=== PATIENT | male | born 1940 | race Caucasian/White ===

== ENCOUNTER 2019-04-15 17:30 | Inpatient (IN) | payer MEDICARE, OTHER ==
[2019-04-15] VITALS (8 sets, daily range): BP systolic 98–117; BP diastolic 68–82
[~2019-04-15] VITALS: Ht 188 cm; Wt 98.9 kg
[2019-04-15] MEDS ORDERED: HEPARIN for IV BOLUS 10,000 UNIT/10 ML VIAL. IV PRN ×2 (20:00)
[2019-04-15] MEDS ORDERED: HEPARIN 25,000UTS/500ML PREMIX 500 ML IV PRN (20:00)
--- NOTE | 2019-04-15 21:45 | RAD ---
VENOUS LOWER EXT BILATERAL History: Massive pulmonary emboli. Comparison: CT angiogram of April 25 Discussion: Multiple longitudinal and transverse high resolution real-time images of the venous system of bilateral lower extremity were obtained with color and Doppler sampling. Partial thrombus within the right superficial femoral and popliteal veins. Occlusive thrombus within the posterior tibial vein. Patent right common femoral and saphenous veins. Occlusive thrombus within the left mid to distal superficial femoral vein, popliteal vein and posterior tibial vein. Patent left common femoral vein and greater saphenous vein. Impression: 1. Partial and occlusive deep vein thrombosis involving the bilateral superficial femoral, popliteal and posterior tibial veins. Electronically signed by: Jorge Pina DO (04/15/2019 9:42 PM) [facility] [place]
[2019-04-15] MEDS: IV NORMAL SALINE 1000ML BAG 1,000 ML IV SCH (22:02)
[2019-04-15] MEDS: methylPREDNISolone SOD SUCC PF 40 MG/ML VIAL. IV SCH (22:02)
[2019-04-15] MEDS ORDERED: ALTEPLASE IV ONE (22:15)
[2019-04-15] MEDS ORDERED: NORMAL SALINE IV ONE (22:15)
--- NOTE | 2019-04-15 23:00 | NUR ---
Admitted to ICU room 106 from [facility] via EMS. Arrived with heparin drip and 5l O2 via simple mask. Transferred to ICU for further treatment due to massive PE. Patient is alert and oriented and able to answer questions appropriately. Denies complaint of pain but reports SOA with activity. Transcribed orders from Dr. Escobar. Dr. Clark notified of admit with orders received to follow PE heparin protocol and TPA per pharmacy recommendations. Pharmacy notified with recommendations. VSS. Will continue to monitor.
--- NOTE | 2019-04-15 23:30 | NUR ---
Patient states that he has no family or next of kin to notify but has a neighbor that can be called but does not have her phone number. 2 estranged daughters. Permission to contact neighbor/friend Cary Victor, but no phone number available. [place] lives [place] [address] [place] [id number] [place] [address]. Patient verbalizes a DNR/DNI.
[2019-04-16] VITALS (24 sets, daily range): BP systolic 111–163; BP diastolic 61–94
[2019-04-16] MEDS ORDERED: ALTEPLASE 100 MG IV ONE
[2019-04-16 04:56] LABS: HEMATOCRIT 42.7 % (39.0-53.0); HEMOGLOBIN 13.9 g/dL (13.0-17.5); RED BLOOD COUNT 4.94 x10^6/uL (4.30-5.70); RED CELL DISTRIBUTION WIDTH 15.4 % (11.5-14.5); WHITE BLOOD COUNT 11.7 x10^3/uL (4.0-11.0)
[2019-04-16 05:24] LABS: ALBUMIN 2.3 g/dL (3.4-5.0); ALBUMIN/GLOBULIN RATIO 0.8 (1.0-1.7); CALCIUM 8.1 mg/dL (8.5-10.1); CREATININE 0.9 mg/dL (0.7-1.3); GFR 81.6; POTASSIUM 4.5 mmol/L (3.5-5.1); TOTAL PROTEIN 5.2 g/dL (6.4-8.2)
[2019-04-16] MEDS: methylPREDNISolone SOD SUCC PF 40 MG/ML VIAL. IV SCH ×3 (06:00→21:43)
[2019-04-16] MEDS ORDERED: PANTOPRAZOLE SODIUM IV DRIP 80 MG in IV NORMAL SALINE 100ML 100 ML IV SCH (07:30)
[2019-04-16 08:16] LABS: HEMATOCRIT 39.8 % (39.0-53.0); HEMOGLOBIN 13.3 g/dL (13.0-17.5); RED BLOOD COUNT 4.64 x10^6/uL (4.30-5.70); RED CELL DISTRIBUTION WIDTH 15.5 % (11.5-14.5)
[2019-04-16 08:19] LABS: CALCIUM 7.9 mg/dL (8.5-10.1); CREATININE 0.9 mg/dL (0.7-1.3); GFR 81.6; POTASSIUM 4.2 mmol/L (3.5-5.1)
[2019-04-16 08:25] LABS: PARTIAL THROMBOPLASTIN TIME 144 SEC (24-38)
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
[2019-04-16] MEDS ORDERED: LIDOCAINE WITH 8.4% SOD BICARB 3 ML DISP.SYRIN. ONE (08:38)
[2019-04-16] MEDS ORDERED: IOHEXOL 240 MG/ML 50ML VIAL. ONE (08:39)
--- NOTE | 2019-04-16 08:40 | PN ---
DATE: 04/16/2019 SUBJECTIVE: The patient was transferred yesterday from [facility] after he was diagnosed with massive pulmonary embolism with saddle embolus with acute on chronic hypoxic respiratory failure, severe hypoxemia, hypotension, treated with at least 2 liters of fluid, was started on heparin and was transferred to [facility] where he received TPA and continued on heparin. Unfortunately, he started bleeding from all the IV sites and also has fresh blood per rectum. However, when I saw him this morning, he was resting slightly propped up in bed in no apparent respiratory distress. On questioning him, he denied any chest pain or shortness of breath. PHYSICAL EXAMINATION: GENERAL: When I examined him, he looked well and was clearly in no apparent respiratory distress. No pallor, jaundice, cyanosis, or thyromegaly. No jugular venous distension, has mild bilateral lower limb edema. VITAL SIGNS: His heart rate was 89, blood pressure was 151/89, temperature was 97.4, respiratory rate was 12 and oxygen saturation was 98% on 6 liters of oxygen. HEAD, EYES, EARS, NOSE AND THROAT: Normocephalic, atraumatic. NECK: Supple. HEART: Showed normal first and second heart sounds. No gallop or murmur. CHEST: Showed central trachea, equally reduced expansion and air entry, vesicular sounds. No crepitation or rhonchi. ABDOMEN: Distended, soft, nontender. No guarding or rigidity. No organomegaly. All hernial orifices intact. Bowel sounds normal. NEUROLOGIC: He is awake, alert, responding appropriately. All cranial nerves are intact. He moves extremities without difficulty. His intake and output overnight was incompletely recorded. LABORATORY DATA: Her lab work this morning showed a white cell count of 11,700, hemoglobin 13.9, hematocrit 43, MCV 87 and platelet count of 142,000. Serum sodium 140, potassium 4.5, chloride 103, bicarbonate 25, anion gap of 12, BUN 26, creatinine 0.9, estimated GFR was 81 mL per minute. His glucose was 149, calcium was 8.1. Total bilirubin, AST, ALT, alkaline phosphatase were normal. Total protein was 5.2, albumin 2.3. He has bilateral lower extremity venous Doppler ultrasound, which showed partial and occlusive deep vein thrombosis involving bilateral superficial femoral, popliteal and posterior tibial veins. ASSESSMENT: In summary, this is a 78-year-old male patient who was admitted initially to the Emergency Room to [facility] with shortness of breath that apparently has been going on for almost a month according to him with also swelling of both lower extremities. He probably has been throwing some of his clothes and yesterday he got out to the bed and went to the bathroom, came back and became extremely hypoxic, tachycardic, hypotensive. His blood pressure was only 80 systolic, treated with IV fluid. He received at that time 2 liters of fluid, was transferred to the ICU. CT angio of the chest showed that he has massive pulmonary embolism with saddle embolus confirmed by an echocardiogram and was transferred to [facility] ICU where he was treated with TPA and heparin. The patient seems to be stable hemodynamically. His oxygen requirement is much less. Yesterday, he was 100% nonrebreather mask. His acute kidney injury has improved. His creatinine is down actually from 1.6 to 0.9. Unfortunately, he developed fresh blood per rectum and bleeding from all the IV sites most likely due to consumption coagulopathy. We have already consulted Dr. Clark. His heparin was stopped. I have consulted Dr. Terrell for placement of an IVC filter. We have also repeated with an order for DIC panel and type and cross as he might require blood transfusion. We will monitor his H and H closely and transfuse him as needed. ELBERT DELUCA MD DR: MARKY/kathleen JOB#: [id number] / [id number]
[2019-04-16 08:59] LABS: FIBRINOGEN 94 mg/dL (200-440)
[2019-04-16 09:00] LABS: D-DIMER > 20.00 ug/mlFEU (0.00-0.50)
[2019-04-16 09:01] LABS: PLATELET COUNT 141 x10^3/uL (140-400)
[2019-04-16] MEDS ORDERED: HEPARIN for IV BOLUS 10,000 UNIT/10 ML VIAL. IV PRN ×2 (09:30)
[2019-04-16] MEDS: HEPARIN 25,000UTS/500ML PREMIX 500 ML IV PRN ×2 (09:57→21:45)
[2019-04-16] MEDS ORDERED: HEPARIN for NUC MED 500 UNIT/5 ML DISP.SYRIN. IV ONE (10:45)
[2019-04-16] MEDS: IV NORMAL SALINE 1000ML BAG 1,000 ML IV SCH (12:53)
--- NOTE | 2019-04-16 12:54 | PDOC ---
PULMONARY PROGRESS NOTES Vitals Vital Signs Date Time Temp Pulse Resp B/P (MAP) Pulse Ox O2 Delivery O2 Flow Rate FiO2 04/16/19 11:00 95 16 124/69 (87) 97 Nasal Cannula 5.0 04/16/19 08:00 97.5 97.5 Labs Laboratory Tests Test 04/16/19 01:55 04/16/19 07:45 White Blood Count 11.7 x10^3/uL (4.0-11.0) 12.0 x10^3/uL (4.0-11.0) Red Blood Count 4.94 x10^6/uL (4.30-5.70) 4.64 x10^6/uL (4.30-5.70) Hemoglobin 13.9 g/dL (13.0-17.5) 13.3 g/dL (13.0-17.5) Hematocrit 42.7 % (39.0-53.0) 39.8 % (39.0-53.0) Mean Corpuscular Volume 87 fL (79-100) 86 fL (79-100) Mean Corpuscular Hemoglobin 28 pg (25-35) 29 pg (25-35) Mean Corpuscular Hemoglobin Concent 33 g/dL (31-37) 33 g/dL (31-37) Red Cell Distribution Width 15.4 % (11.5-14.5) 15.5 % (11.5-14.5) Platelet Count 142 x10^3/uL (140-400) 141 x10^3/uL (140-400) Heparin Anti-Xa Act, Unfractionated < 0.10 IU/mL (0.30-0.70) 0.43 IU/mL (0.30-0.70) Sodium Level 140 mmol/L (136-145) 139 mmol/L (136-145) Potassium Level 4.5 mmol/L (3.5-5.1) 4.2 mmol/L (3.5-5.1) Chloride Level 103 mmol/L (98-107) 105 mmol/L (98-107) Carbon Dioxide Level 25 mmol/L (21-32) 26 mmol/L (21-32) Anion Gap 12 (6-14) 8 (6-14) Blood Urea Nitrogen 26 mg/dL (8-26) 27 mg/dL (8-26) Creatinine 0.9 mg/dL (0.7-1.3) 0.9 mg/dL (0.7-1.3) Estimated GFR (Cockcroft-Gault) 81.6 81.6 BUN/Creatinine Ratio 29 (6-20) Glucose Level 149 mg/dL (70-99) 149 mg/dL (70-99) Calcium Level 8.1 mg/dL (8.5-10.1) 7.9 mg/dL (8.5-10.1) Total Bilirubin 1.0 mg/dL (0.2-1.0) Aspartate Amino Transf (AST/SGOT) 40 U/L (15-37) Alanine Aminotransferase (ALT/SGPT) 47 U/L (16-63) Alkaline Phosphatase 91 U/L (46-116) Total Protein 5.2 g/dL (6.4-8.2) Albumin 2.3 g/dL (3.4-5.0) Albumin/Globulin Ratio 0.8 (1.0-1.7) Prothrombin Time 20.0 SEC (11.7-14.0) Prothromb Time International Ratio 1.7 (0.8-1.1) Activated Partial Thromboplast Time 144 SEC (24-38) Fibrinogen 94 mg/dL (200-440) D-Dimer (Zully) > 20.00 ug/mlFEU Laboratory Tests Test 04/16/19 01:55 04/16/19 07:45 White Blood Count 11.7 x10^3/uL (4.0-11.0) 12.0 x10^3/uL (4.0-11.0) Red Blood Count 4.94 x10^6/uL (4.30-5.70) 4.64 x10^6/uL (4.30-5.70) Hemoglobin 13.9 g/dL (13.0-17.5) 13.3 g/dL (13.0-17.5) Hematocrit 42.7 % (39.0-53.0) 39.8 % (39.0-53.0) Mean Corpuscular Volume 87 fL (79-100) 86 fL (79-100) Mean Corpuscular Hemoglobin 28 pg (25-35) 29 pg (25-35) Mean Corpuscular Hemoglobin Concent 33 g/dL (31-37) 33 g/dL (31-37) Red Cell Distribution Width 15.4 % (11.5-14.5) 15.5 % (11.5-14.5) Platelet Count 142 x10^3/uL (140-400) 141 x10^3/uL (140-400) Heparin Anti-Xa Act, Unfractionated < 0.10 IU/mL (0.30-0.70) 0.43 IU/mL (0.30-0.70) Sodium Level 140 mmol/L (136-145) 139 mmol/L (136-145) Potassium Level 4.5 mmol/L (3.5-5.1) 4.2 mmol/L (3.5-5.1) Chloride Level 103 mmol/L (98-107) 105 mmol/L (98-107) Carbon Dioxide Level 25 mmol/L (21-32) 26 mmol/L (21-32) Anion Gap 12 (6-14) 8 (6-14) Blood Urea Nitrogen 26 mg/dL (8-26) 27 mg/dL (8-26) Creatinine 0.9 mg/dL (0.7-1.3) 0.9 mg/dL (0.7-1.3) Estimated GFR (Cockcroft-Gault) 81.6 81.6 BUN/Creatinine Ratio 29 (6-20) Glucose Level 149 mg/dL (70-99) 149 mg/dL (70-99) Calcium Level 8.1 mg/dL (8.5-10.1) 7.9 mg/dL (8.5-10.1) Total Bilirubin 1.0 mg/dL (0.2-1.0) Aspartate Amino Transf (AST/SGOT) 40 U/L (15-37) Alanine Aminotransferase (ALT/SGPT) 47 U/L (16-63) Alkaline Phosphatase 91 U/L (46-116) Total Protein 5.2 g/dL (6.4-8.2) Albumin 2.3 g/dL (3.4-5.0) Albumin/Globulin Ratio 0.8 (1.0-1.7) Prothrombin Time 20.0 SEC (11.7-14.0) Prothromb Time International Ratio 1.7 (0.8-1.1) Activated Partial Thromboplast Time 144 SEC (24-38) Fibrinogen 94 mg/dL (200-440) D-Dimer (Zully) > 20.00 ug/mlFEU Impression . FULL NOTE DICTATED ACUTE PE/ RESP FAILURE S/P TPA NOW BETTER WITH SOME LOWER GI BLEED WILL MONITOR D/W PETER Young AND NANCY NUÑEZ MD Apr 16, 2019 12:54
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
--- NOTE | 2019-04-16 13:31 | CONS ---
DATE OF CONSULTATION: 04/16/2019 ATTENDING PHYSICIAN: Dr. Escobar. CONSULTING PHYSICIAN: Dr. Clark. REASON FOR CONSULTATION: The patient is seen in pulmonary consultation at the request of Dr. Escobar for acute respiratory distress, acute pulmonary embolism. HISTORY OF PRESENT ILLNESS: The patient is a 78-year-old male that presented to [facility] Emergency Room complaining of increasing shortness of breath for the past month or so. At that time, he did not complain of any chest pain. No pressure. The patient was admitted and treated for COPD exacerbation as well as congestive heart failure. Yesterday while hospitalized at [facility], the patient got up out of bed and went to the bathroom, became acutely short of breath, tachypneic and tachycardic. His O2 saturation dropped to 70%. EKG showed that he was in SVT versus AFib. He was hypotensive. He was started on IV fluids. He was evaluated with CT angiogram. I reviewed the CT angiogram revealing evidence of massive pulmonary emboli. The patient also had any echocardiogram revealing ejection fraction 55 to 60% with right ventricular strain. His right ventricular systolic function was decreased. Dr. Hutton called me yesterday regarding the patient's clinical presentation. We had a detailed discussion. At that time, the patient was hemodynamically unstable. There were no contraindications to administering IV tPA. The patient was transferred to [facility] for further evaluation and management. Upon arrival to the [facility], the patient was started IV tPA. This morning, he had some difficulty with some bright red blood per rectum, the heparin drip was discontinued. He has been seen by GI service. A bleeding scan has been ordered, report is currently pending. He has also had bilateral DVTs. Earlier today, a decision was made to proceed with IVC filter placement. Upon evaluation by Dr. Whitney, the patient's lower GI bleed, had stopped. We discussed the case with me. We then concluded that at that time, the placement of the IVC filter was held. The patient underwent a GI bleeding scan. He was restarted on heparin. He is currently in the intensive care unit, awake, alert, following commands. His vital signs have greatly improved. He is on nasal cannula oxygen. He reports no significant difficulty breathing. There is no prior history of thrombophilia. No history of cancer. The patient is active, walks on a daily basis. PAST MEDICAL HISTORY: Otherwise remarkable for COPD, previous history of pneumothorax, tobacco dependence and in remission, quit approximately 2 years ago. PAST SURGICAL HISTORY: Previous chest tube placement. He has had previous traumatic pneumothorax. ALLERGIES: No known drug allergies. CURRENT MEDICATION LIST: At home was reviewed. FAMILY HISTORY: Sister with coronary artery disease. No history of DVT or pulmonary embolism. SOCIAL HISTORY: He is , quit tobacco 2 years ago. CONSTITUTIONAL: CONSTITUTIONAL: No fever or chills. EYES: No change in visual acuity. HEENT: No nasal congestion or sore throat. PULMONARY: As indicated above. CARDIOVASCULAR: As indicated above. GASTROINTESTINAL: No nausea, vomiting, diarrhea. GENITOURINARY: No dysuria or frequency. MUSCULOSKELETAL: No localized muscle aches or joint pains. SKIN: No new skin rashes. NEUROLOGIC: No headaches, diplopia or blurred vision. No prior history of cerebrovascular accident. No recent bleeding. PHYSICAL EXAMINATION: VITAL SIGNS: The patient was in the intensive care unit, currently on 4 liters of oxygen supplementation. Blood pressure is adequate. Heart rate is decreased. Respiratory rate of 16. HEENT: Eyes, sclerae were nonicteric. NECK: Jugular venous distention was not elevated. No lymphadenopathy. CHEST: Full expansion. LUNGS: Adequate airway flow with no wheezes. CARDIOVASCULAR: Regular rate and rhythm with S1, S2, no S3. ABDOMEN: Soft, nontender, nondistended. EXTREMITIES: No clubbing, cyanosis or edema. NEUROLOGICAL: The patient was awake, alert, following commands. A detailed neuro exam was not performed. LABORATORY DATA: CT chest was reviewed. Once again there is massive pulmonary emboli, right ventricular strain and moderate centrilobular emphysema. Venous Dopplers of the lower extremities were positive bilateral superficial femoral, popliteal and posterior tibial veins. A 2D echo once again revealed EF of 55-60%, flattened septum consistent with right ventricular volume and pressure overload along with right ventricular dilatation and the RV systolic function was mildly reduced. IMPRESSION: 1. Acute hypoxemic respiratory failure secondary to acute pulmonary embolism. 2. Acute pulmonary emboli. 3. Bilateral lower extremity venous thrombi. 4. 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 5. Tobacco dependent, in remission. 6. Lower GI bleed. 7. Severe protein malnutrition present upon admission. PLAN: As indicated above, the case was discussed extensively with Dr. Hutton. A decision was made to administer TPA, the patient did not have any relative or absolute contraindications to systemic tPA. This morning, he is having some difficulty with lower GI bleed. He is currently being evaluated. Overall, his respiratory status and hemodynamic status has improved. We will continue to monitor for now, continue heparin for now. If the patient starts to rebleeding have some difficulty. We will proceed with IVC filter placement. Of note, his hemoglobin went from 13.9 to 13.3 this morning. We will monitor H and H for now. I do appreciate the privilege in sharing in the patient's care. NANCY CLARK MD DR: DANIAL/kathleen JOB#: [id number] / [id number]
--- NOTE | 2019-04-16 13:58 | RAD ---
NUCLEAR MEDICINE GI BLEEDING STUDY Clinical indications: Bloody stools. TECHNIQUE: After labeling of autologous red blood cells with 29 mCi of technetium 99m UltraTag, anterior planar images of the abdomen and pelvis were performed in sequential fashion up to 60 minutes. COMPARISON: No previous GI bleeding study. FINDINGS: There is a focus of radiotracer accumulation within the lateral aspect of the right mid abdomen. IMPRESSION: Bleeding site within the lateral aspect of the right mid abdomen. Electronically signed by: J Luis Vasques MD (04/16/2019 1:55 PM) [id number]
--- NOTE | 2019-04-16 14:51 | PDOC ---
TIM MCGRATH SPECIAL SKILLS OFFICER 04/16/19 1451: CARDIO Progress Notes Date and Time Date of Service 04/16/19 Time of Evaluation 1111 Subjective Subjective: Other (breathing improve. having bloody stools) Vitals Vitals Vital Signs Date Time Temp Pulse Resp B/P (MAP) Pulse Ox O2 Delivery O2 Flow Rate FiO2 04/16/19 14:00 89 16 129/72 (91) 96 Nasal Cannula 3.0 04/16/19 08:00 97.5 97.5 Weight Weight [ ] Input and Output Intake and Output Intake and Output 04/16/19 07:00 Intake Total 100 ml Output Total 585 ml Balance -485 ml Intake IV Total 100 ml Output Urine Total 585 ml # Bowel Movements 1 Laboratory Labs Laboratory Tests Test 04/16/19 01:55 04/16/19 07:45 White Blood Count 11.7 x10^3/uL (4.0-11.0) 12.0 x10^3/uL (4.0-11.0) Red Blood Count 4.94 x10^6/uL (4.30-5.70) 4.64 x10^6/uL (4.30-5.70) Hemoglobin 13.9 g/dL (13.0-17.5) 13.3 g/dL (13.0-17.5) Hematocrit 42.7 % (39.0-53.0) 39.8 % (39.0-53.0) Mean Corpuscular Volume 87 fL (79-100) 86 fL (79-100) Mean Corpuscular Hemoglobin 28 pg (25-35) 29 pg (25-35) Mean Corpuscular Hemoglobin Concent 33 g/dL (31-37) 33 g/dL (31-37) Red Cell Distribution Width 15.4 % (11.5-14.5) 15.5 % (11.5-14.5) Platelet Count 142 x10^3/uL (140-400) 141 x10^3/uL (140-400) Heparin Anti-Xa Act, Unfractionated < 0.10 IU/mL (0.30-0.70) 0.43 IU/mL (0.30-0.70) Sodium Level 140 mmol/L (136-145) 139 mmol/L (136-145) Potassium Level 4.5 mmol/L (3.5-5.1) 4.2 mmol/L (3.5-5.1) Chloride Level 103 mmol/L (98-107) 105 mmol/L (98-107) Carbon Dioxide Level 25 mmol/L (21-32) 26 mmol/L (21-32) Anion Gap 12 (6-14) 8 (6-14) Blood Urea Nitrogen 26 mg/dL (8-26) 27 mg/dL (8-26) Creatinine 0.9 mg/dL (0.7-1.3) 0.9 mg/dL (0.7-1.3) Estimated GFR (Cockcroft-Gault) 81.6 81.6 BUN/Creatinine Ratio 29 (6-20) Glucose Level 149 mg/dL (70-99) 149 mg/dL (70-99) Calcium Level 8.1 mg/dL (8.5-10.1) 7.9 mg/dL (8.5-10.1) Total Bilirubin 1.0 mg/dL (0.2-1.0) Aspartate Amino Transf (AST/SGOT) 40 U/L (15-37) Alanine Aminotransferase (ALT/SGPT) 47 U/L (16-63) Alkaline Phosphatase 91 U/L (46-116) Total Protein 5.2 g/dL (6.4-8.2) Albumin 2.3 g/dL (3.4-5.0) Albumin/Globulin Ratio 0.8 (1.0-1.7) Prothrombin Time 20.0 SEC (11.7-14.0) Prothromb Time International Ratio 1.7 (0.8-1.1) Activated Partial Thromboplast Time 144 SEC (24-38) Fibrinogen 94 mg/dL (200-440) D-Dimer (Zully) > 20.00 ug/mlFEU Physical Exam HEENT: Neck Supple W Full Motion Chest: Symmetric LUNGS: Clear to Auscultation, Other (diminished bases) Heart: S1S2, RRR Abdomen: Soft N/T Extremities: Other (trace bilateral LE edema ) Neurology: alert, oriented, follow commands Assessment Assessment 1. Acute respiratory failure in the setting of acute PE 2. Significant acute PE; sp tPA. Echo with moderate to sever RV dilation and moderately reduced RV systolic function and severe pulmonary HTN 3. Bilateral LE DVT 4. GI bleed s/p tPA; hgb stable 5. Mild acute on chronic diastolic HF; LVEF 55-60 % 6. CAD; coronary artery calcification as noted on CTA 7. Hypertension; controlled 8. Hyperlipidemia Recommendations on heparin. Monitor H and H IVC filter being considered given GI bleed Supportive care SHEYLA SOTO MD 04/16/19 2218: CARDIO Progress Notes Plan Plan Pt. seen and examined. Agree with above DIRECTOR OF PRODUCT MANAGEMENT note. Doing much better since transfer from [place], O2 sats improved with less O2 requirements. Await possible IVC filter. Supportive care from CV standpoint. Consider repeat echo in 3 months TIM MCGRATH APRN Apr 16, 2019 14:51 SHEYLA SOTO MD Apr 16, 2019 22:18
--- NOTE | 2019-04-16 15:36 | NUR ---
SS following for discharge planning. SS reviewed pt chart. Pt is from home and is currently requiring oxygen. SS will continue to follow for discharge planning.
[2019-04-16 15:49] LABS: HEMATOCRIT 37.9 % (39.0-53.0); HEMOGLOBIN 12.4 g/dL (13.0-17.5)
[2019-04-16 22:53] LABS: HEMATOCRIT 34.1 % (39.0-53.0); HEMOGLOBIN 11.4 g/dL (13.0-17.5)
[2019-04-17] VITALS (24 sets, daily range): BP systolic 103–140; BP diastolic 60–79
[2019-04-17 05:13] LABS: HEMATOCRIT 33.3 % (39.0-53.0); HEMOGLOBIN 11.1 g/dL (13.0-17.5); RED BLOOD COUNT 3.85 x10^6/uL (4.30-5.70); RED CELL DISTRIBUTION WIDTH 15.3 % (11.5-14.5); WHITE BLOOD COUNT 9.9 x10^3/uL (4.0-11.0)
[2019-04-17 05:29] LABS: PROTHROMBIN TIME PATIENT 16.9 SEC (11.7-14.0)
[2019-04-17 05:30] LABS: UNFRACTIONATED HEPARIN TESTING 0.72 IU/mL (0.30-0.70)
[2019-04-17 05:36] LABS: ALBUMIN/GLOBULIN RATIO 0.7 (1.0-1.7); CREATININE 0.7 mg/dL (0.7-1.3); GFR 109.1; POTASSIUM 4.6 mmol/L (3.5-5.1); TOTAL BILIRUBIN 0.5 mg/dL (0.2-1.0); TOTAL PROTEIN 4.9 g/dL (6.4-8.2)
[2019-04-17] MEDS: methylPREDNISolone SOD SUCC PF 40 MG/ML VIAL. IV SCH ×3 (06:06→21:42)
--- NOTE | 2019-04-17 08:16 | PN ---
DATE: 04/17/2019 SUBJECTIVE: The patient is resting, slightly flat, sleeping comfortably, in no apparent distress. On questioning him, he denied any complaint, in particular denied any chest pain or shortness of breath. Denied any cough, phlegm or hemoptysis. He is now on 2 liters of oxygen, maintaining his oxygen saturations at 97%. PHYSICAL EXAMINATION: GENERAL: On examining him, he looked well and was clearly in no apparent respiratory distress. No pallor, jaundice, cyanosis or thyromegaly. No jugular venous distention. No limb edema. VITAL SIGNS: Her heart rate was 86, blood pressure was 128/75, temperature was 97.4, respiratory rate was 11, and oxygen saturation was 94% on 2 liters oxygen. HEAD, EYES, EARS, NOSE AND THROAT: Showed normocephalic, atraumatic. NECK: Supple. HEART: Showed normal first and second heart sounds. No gallop or murmur. CHEST: Clear to auscultation. No crepitation or rhonchi. ABDOMEN: Distended, soft, and nontender. NEUROLOGIC: He is awake, alert, responding appropriately. All cranial nerves intact. He moves extremities without difficulty. His intake and output are incompletely recorded. LABORATORY DATA: Her lab work this morning showed a white cell count 9,900, hemoglobin 11, hematocrit 33, MCV 86, and platelet count of 141,000. Serum sodium 140, potassium 4.6, chloride 106, bicarbonate 27, anion gap of 7, BUN 21, creatinine was 0.7, estimated GFR was 109 mL per minute, his glucose was 161, calcium was 8. Total bilirubin, AST, ALT, alkaline phosphatase were normal. Total protein was 4.9, albumin was 2. ASSESSMENT: 1. Acute hypoxic respiratory failure secondary to massive pulmonary embolism. 2. Saddle embolus, treated with TPA and heparin drip. 3. Bilateral lower extremity venous thrombosis. 4. Chronic obstructive pulmonary disease. 5. Continued tobacco abuse. 6. Gastrointestinal bleeding. 7. Severe protein-calorie malnutrition. PLAN: To continue with heparin drip. He has no further episode of bleeding; however, he dropped his hemoglobin from 15 to 11. He is apparently scheduled for IVC filter placement and obviously he will be willing to start the process of physical and occupational therapy as soon as he is able to participate. ELBERT DELUCA MD DR: Uche JOB#: [id number] / [id number]
--- NOTE | 2019-04-17 10:15 | PDOC ---
G I PROGRESS NOTE Reason for Follow-up Acute blood loss anemia Subjective Breathing better Physical Exam Lungs decreased BS CV S1 S2 ABD +BS, soft, nontender Review of Relevant I have reviewed the following items nicolas (where applicable) has been applied. Labs Laboratory Tests Test 04/16/19 01:55 04/16/19 07:45 04/16/19 15:40 04/16/19 22:35 White Blood Count 11.7 x10^3/uL (4.0-11.0) 12.0 x10^3/uL (4.0-11.0) Red Blood Count 4.94 x10^6/uL (4.30-5.70) 4.64 x10^6/uL (4.30-5.70) Hemoglobin 13.9 g/dL (13.0-17.5) 13.3 g/dL (13.0-17.5) 12.4 g/dL (13.0-17.5) 11.4 g/dL (13.0-17.5) Hematocrit 42.7 % (39.0-53.0) 39.8 % (39.0-53.0) 37.9 % (39.0-53.0) 34.1 % (39.0-53.0) Mean Corpuscular Volume 87 fL (79-100) 86 fL (79-100) Mean Corpuscular Hemoglobin 28 pg (25-35) 29 pg (25-35) Mean Corpuscular Hemoglobin Concent 33 g/dL (31-37) 33 g/dL (31-37) 33 g/dL (31-37) 33 g/dL (31-37) Red Cell Distribution Width 15.4 % (11.5-14.5) 15.5 % (11.5-14.5) Platelet Count 142 x10^3/uL (140-400) 141 x10^3/uL (140-400) Heparin Anti-Xa Act, Unfractionated < 0.10 IU/mL (0.30-0.70) 0.43 IU/mL (0.30-0.70) 0.64 IU/mL (0.30-0.70) 0.83 IU/mL (0.30-0.70) Sodium Level 140 mmol/L (136-145) 139 mmol/L (136-145) Potassium Level 4.5 mmol/L (3.5-5.1) 4.2 mmol/L (3.5-5.1) Chloride Level 103 mmol/L (98-107) 105 mmol/L (98-107) Carbon Dioxide Level 25 mmol/L (21-32) 26 mmol/L (21-32) Anion Gap 12 (6-14) 8 (6-14) Blood Urea Nitrogen 26 mg/dL (8-26) 27 mg/dL (8-26) Creatinine 0.9 mg/dL (0.7-1.3) 0.9 mg/dL (0.7-1.3) Estimated GFR (Cockcroft-Gault) 81.6 81.6 BUN/Creatinine Ratio 29 (6-20) Glucose Level 149 mg/dL (70-99) 149 mg/dL (70-99) Calcium Level 8.1 mg/dL (8.5-10.1) 7.9 mg/dL (8.5-10.1) Total Bilirubin 1.0 mg/dL (0.2-1.0) Aspartate Amino Transf (AST/SGOT) 40 U/L (15-37) Alanine Aminotransferase (ALT/SGPT) 47 U/L (16-63) Alkaline Phosphatase 91 U/L (46-116) Total Protein 5.2 g/dL (6.4-8.2) Albumin 2.3 g/dL (3.4-5.0) Albumin/Globulin Ratio 0.8 (1.0-1.7) Prothrombin Time 20.0 SEC (11.7-14.0) Prothromb Time International Ratio 1.7 (0.8-1.1) Activated Partial Thromboplast Time 144 SEC (24-38) Fibrinogen 94 mg/dL (200-440) D-Dimer (Zully) > 20.00 ug/mlFEU Test 04/17/19 04:50 White Blood Count 9.9 x10^3/uL (4.0-11.0) Red Blood Count 3.85 x10^6/uL (4.30-5.70) Hemoglobin 11.1 g/dL (13.0-17.5) Hematocrit 33.3 % (39.0-53.0) Mean Corpuscular Volume 86 fL (79-100) Mean Corpuscular Hemoglobin 29 pg (25-35) Mean Corpuscular Hemoglobin Concent 33 g/dL (31-37) Red Cell Distribution Width 15.3 % (11.5-14.5) Platelet Count 141 x10^3/uL (140-400) Prothrombin Time 16.9 SEC (11.7-14.0) Prothromb Time International Ratio 1.4 (0.8-1.1) Heparin Anti-Xa Act, Unfractionated 0.72 IU/mL (0.30-0.70) Sodium Level 140 mmol/L (136-145) Potassium Level 4.6 mmol/L (3.5-5.1) Chloride Level 106 mmol/L (98-107) Carbon Dioxide Level 27 mmol/L (21-32) Anion Gap 7 (6-14) Blood Urea Nitrogen 21 mg/dL (8-26) Creatinine 0.7 mg/dL (0.7-1.3) Estimated GFR (Cockcroft-Gault) 109.1 BUN/Creatinine Ratio 30 (6-20) Glucose Level 161 mg/dL (70-99) Calcium Level 8.0 mg/dL (8.5-10.1) Total Bilirubin 0.5 mg/dL (0.2-1.0) Aspartate Amino Transf (AST/SGOT) 24 U/L (15-37) Alanine Aminotransferase (ALT/SGPT) 35 U/L (16-63) Alkaline Phosphatase 72 U/L (46-116) Total Protein 4.9 g/dL (6.4-8.2) Albumin 2.0 g/dL (3.4-5.0) Albumin/Globulin Ratio 0.7 (1.0-1.7) Laboratory Tests Test 04/16/19 15:40 04/16/19 22:35 04/17/19 04:50 Hemoglobin 12.4 g/dL (13.0-17.5) 11.4 g/dL (13.0-17.5) 11.1 g/dL (13.0-17.5) Hematocrit 37.9 % (39.0-53.0) 34.1 % (39.0-53.0) 33.3 % (39.0-53.0) Mean Corpuscular Hemoglobin Concent 33 g/dL (31-37) 33 g/dL (31-37) 33 g/dL (31-37) Heparin Anti-Xa Act, Unfractionated 0.64 IU/mL (0.30-0.70) 0.83 IU/mL (0.30-0.70) 0.72 IU/mL (0.30-0.70) White Blood Count 9.9 x10^3/uL (4.0-11.0) Red Blood Count 3.85 x10^6/uL (4.30-5.70) Mean Corpuscular Volume 86 fL (79-100) Mean Corpuscular Hemoglobin 29 pg (25-35) Red Cell Distribution Width 15.3 % (11.5-14.5) Platelet Count 141 x10^3/uL (140-400) Prothrombin Time 16.9 SEC (11.7-14.0) Prothromb Time International Ratio 1.4 (0.8-1.1) Sodium Level 140 mmol/L (136-145) Potassium Level 4.6 mmol/L (3.5-5.1) Chloride Level 106 mmol/L (98-107) Carbon Dioxide Level 27 mmol/L (21-32) Anion Gap 7 (6-14) Blood Urea Nitrogen 21 mg/dL (8-26) Creatinine 0.7 mg/dL (0.7-1.3) Estimated GFR (Cockcroft-Gault) 109.1 BUN/Creatinine Ratio 30 (6-20) Glucose Level 161 mg/dL (70-99) Calcium Level 8.0 mg/dL (8.5-10.1) Total Bilirubin 0.5 mg/dL (0.2-1.0) Aspartate Amino Transf (AST/SGOT) 24 U/L (15-37) Alanine Aminotransferase (ALT/SGPT) 35 U/L (16-63) Alkaline Phosphatase 72 U/L (46-116) Total Protein 4.9 g/dL (6.4-8.2) Albumin 2.0 g/dL (3.4-5.0) Albumin/Globulin Ratio 0.7 (1.0-1.7) Medications Current Medications Heparin Sodium/ Dextrose 500 ml @ 0 mls/hr CONT PRN IV PER PROTOCOL; Start 04/15/19 at 20:00; Stop 04/16/19 at 07:36; Status DC Heparin Sodium (Porcine) (Heparin Sodium) 2,950 unit PRN Q6HRS PRN IV FOR UFH LEVEL LESS THAN 0.2 Last administered on 04/16/19at 03:16; Start 04/15/19 at 20:00; Stop 04/16/19 at 07:36; Status DC Heparin Sodium (Porcine) (Heparin Sodium) 1,450 unit PRN Q6HRS PRN IV FOR UFH LEVEL 0.2 - 0.29; Start 04/15/19 at 20:00; Stop 04/16/19 at 07:36; Status DC Sodium Chloride 1,000 ml @ 75 mls/hr [id number] IV Last administered on 04/16/19at 12:53; Start 04/15/19 at 21:00; Stop 04/16/19 at 13:41; Status DC Methylprednisolone Sodium Succinate (SOLU-Medrol 40MG VIAL) 40 mg Q8HRS IV Last administered on 04/17/19at 06:06; Start 04/15/19 at 21:00 Alteplase, Recombinant 50 mg/ Sodium Chloride 500 ml @ 500 mls/hr 1X ONCE IV ; Start 04/15/19 at 22:15; Stop 04/15/19 at 23:14; Status UNV Alteplase, Recombinant 100 ml @ 50 mls/hr 1X ONCE IV Last administered on 04/15/19at 22:45; Start 04/16/19 at 00:00; Stop 04/16/19 at 01:59; Status DC Pantoprazole Sodium 80 mg/ Sodium Chloride 100 ml @ 10 mls/hr Q10H IV Last administered on 04/16/19at 08:30; Start 04/16/19 at 07:30; Stop 04/16/19 at 14:03; Status DC Lidocaine HCl (Buffered Lidocaine 1%) 3 ml STK-MED ONCE .ROUTE ; Start 04/16/19 at 08:38; Stop 04/16/19 at 08:38; Status DC Iohexol (Omnipaque 240 Mg/ml) 50 ml STK-MED ONCE .ROUTE ; Start 04/16/19 at 08:39; Stop 04/16/19 at 08:39; Status DC Heparin Sodium/ Dextrose 500 ml @ 37 mls/hr CONT PRN IV PER PROTOCOL Last administered on 10/10/19at 21:45; Start 04/16/19 at 09:30 Heparin Sodium (Porcine) (Heparin Sodium) 2,950 unit PRN Q6HRS PRN IV FOR UFH LEVEL LESS THAN 0.2; Start 04/16/19 at 09:30 Heparin Sodium (Porcine) (Heparin Sodium) 1,450 unit PRN Q6HRS PRN IV FOR UFH LEVEL 0.2 - 0.29; Start 04/16/19 at 09:30 Heparin Sodium (Porcine) (HEPARIN for NUC MED) 100 unit 1X ONCE IV ; Start 04/16/19 at 10:45; Stop 04/16/19 at 10:46; Status DC Pantoprazole Sodium (Protonix) 40 mg DAILYAC PO ; Start 04/17/19 at 07:30 Vitals/I & O Vital Sign - Last 24 Hours 04/16/19 04/16/19 04/16/19 04/16/19 11:00 12:00 12:00 13:00 Temp 97.5 97.5 Pulse 95 94 92 Resp 16 18 18 B/P (MAP) 124/69 (87) 113/74 (87) 163/71 (101) Pulse Ox 97 98 98 O2 Delivery Nasal Cannula Nasal Cannula Nasal Cannula Nasal Cannula O2 Flow Rate 5.0 4.0 4.0 4.0 04/16/19 04/16/19 04/16/19 04/16/19 14:00 15:00 15:44 16:00 Temp 97.5 97.5 Pulse 89 93 90 Resp 16 25 20 B/P (MAP) 129/72 (91) 118/75 (89) 113/66 (82) Pulse Ox 96 96 93 O2 Delivery Nasal Cannula Nasal Cannula Nasal Cannula Nasal Cannula O2 Flow Rate 3.0 3.0 2.0 2.0 04/16/19 04/16/19 04/16/19 04/16/19 17:00 18:00 19:00 20:00 Pulse 92 85 92 Resp 20 19 16 B/P (MAP) 123/71 (88) 120/65 (83) 119/67 (84) Pulse Ox 95 96 96 O2 Delivery Nasal Cannula Nasal Cannula Nasal Cannula Nasal Cannula O2 Flow Rate 2.0 2.0 2.0 2.0 04/16/19 04/16/19 04/16/19 04/16/19 20:00 21:00 22:00 23:00 Temp 97.4 97.4 Pulse 88 89 86 85 Resp 16 15 11 11 B/P (MAP) 113/70 (84) 113/66 (82) 111/74 (86) 124/68 (86) Pulse Ox 96 96 96 93 O2 Delivery Nasal Cannula Nasal Cannula Nasal Cannula Nasal Cannula O2 Flow Rate 2.0 2.0 2.0 2.0 04/16/19 04/17/19 04/17/19 04/17/19 23:59 00:01 01:00 02:00 Pulse 85 86 84 Resp 11 11 11 B/P (MAP) 131/71 (91) 132/74 (93) 133/77 (95) Pulse Ox 94 93 94 O2 Delivery Nasal Cannula Nasal Cannula Nasal Cannula Nasal Cannula O2 Flow Rate 2.0 2.0 2.0 2.0 04/17/19 04/17/19 04/17/19 04/17/19 03:00 04:00 04:00 05:00 Temp 97.4 97.4 Pulse 90 86 87 Resp 05 18 17 B/P (MAP) 126/73 (90) 128/75 (92) 125/79 (94) Pulse Ox 94 94 94 O2 Delivery Nasal Cannula Nasal Cannula Nasal Cannula Nasal Cannula O2 Flow Rate 2.0 2.0 2.0 2.0 04/17/19 06:00 Pulse 80 Resp 17 B/P (MAP) 108/69 (82) Pulse Ox 94 O2 Delivery Nasal Cannula O2 Flow Rate 2.0 Intake and Output 04/16/19 04/16/19 04/17/19 15:00 23:00 07:00 Intake Total 300 ml 2041 ml Output Total 550 ml 730 ml 500 ml Balance -250 ml 1311 ml -500 ml Problem List Acute blood loss anemia- s/p TPA with PE/DVTs, Hg stabilized, IVC filter on hold, CPM PROPJOSE SELLERS MD Apr 17, 2019 10:14
--- NOTE | 2019-04-17 10:44 | PDOC ---
PULMONARY PROGRESS NOTES Subjective PT NOT MORE SOA Vitals Vital Signs Date Time Temp Pulse Resp B/P (MAP) Pulse Ox O2 Delivery O2 Flow Rate FiO2 04/17/19 10:00 88 17 113/69 (84) 95 Nasal Cannula 2.0 04/17/19 08:00 98.0 98.0 ROS: No Nausea, No Chest Pain, No Abdominal Pain, No Increase Cough General: Alert Lungs: Clear Cardiovascular: S1, S2 Abdomen: Soft Neuro Exam: Alert Extremities: No Edema Skin: Warm Labs Laboratory Tests Test 04/16/19 01:55 04/16/19 07:45 04/16/19 15:40 04/16/19 22:35 White Blood Count 11.7 x10^3/uL (4.0-11.0) 12.0 x10^3/uL (4.0-11.0) Red Blood Count 4.94 x10^6/uL (4.30-5.70) 4.64 x10^6/uL (4.30-5.70) Hemoglobin 13.9 g/dL (13.0-17.5) 13.3 g/dL (13.0-17.5) 12.4 g/dL (13.0-17.5) 11.4 g/dL (13.0-17.5) Hematocrit 42.7 % (39.0-53.0) 39.8 % (39.0-53.0) 37.9 % (39.0-53.0) 34.1 % (39.0-53.0) Mean Corpuscular Volume 87 fL (79-100) 86 fL (79-100) Mean Corpuscular Hemoglobin 28 pg (25-35) 29 pg (25-35) Mean Corpuscular Hemoglobin Concent 33 g/dL (31-37) 33 g/dL (31-37) 33 g/dL (31-37) 33 g/dL (31-37) Red Cell Distribution Width 15.4 % (11.5-14.5) 15.5 % (11.5-14.5) Platelet Count 142 x10^3/uL (140-400) 141 x10^3/uL (140-400) Heparin Anti-Xa Act, Unfractionated < 0.10 IU/mL (0.30-0.70) 0.43 IU/mL (0.30-0.70) 0.64 IU/mL (0.30-0.70) 0.83 IU/mL (0.30-0.70) Sodium Level 140 mmol/L (136-145) 139 mmol/L (136-145) Potassium Level 4.5 mmol/L (3.5-5.1) 4.2 mmol/L (3.5-5.1) Chloride Level 103 mmol/L (98-107) 105 mmol/L (98-107) Carbon Dioxide Level 25 mmol/L (21-32) 26 mmol/L (21-32) Anion Gap 12 (6-14) 8 (6-14) Blood Urea Nitrogen 26 mg/dL (8-26) 27 mg/dL (8-26) Creatinine 0.9 mg/dL (0.7-1.3) 0.9 mg/dL (0.7-1.3) Estimated GFR (Cockcroft-Gault) 81.6 81.6 BUN/Creatinine Ratio 29 (6-20) Glucose Level 149 mg/dL (70-99) 149 mg/dL (70-99) Calcium Level 8.1 mg/dL (8.5-10.1) 7.9 mg/dL (8.5-10.1) Total Bilirubin 1.0 mg/dL (0.2-1.0) Aspartate Amino Transf (AST/SGOT) 40 U/L (15-37) Alanine Aminotransferase (ALT/SGPT) 47 U/L (16-63) Alkaline Phosphatase 91 U/L (46-116) Total Protein 5.2 g/dL (6.4-8.2) Albumin 2.3 g/dL (3.4-5.0) Albumin/Globulin Ratio 0.8 (1.0-1.7) Prothrombin Time 20.0 SEC (11.7-14.0) Prothromb Time International Ratio 1.7 (0.8-1.1) Activated Partial Thromboplast Time 144 SEC (24-38) Fibrinogen 94 mg/dL (200-440) D-Dimer (Zully) > 20.00 ug/mlFEU Test 04/17/19 04:50 White Blood Count 9.9 x10^3/uL (4.0-11.0) Red Blood Count 3.85 x10^6/uL (4.30-5.70) Hemoglobin 11.1 g/dL (13.0-17.5) Hematocrit 33.3 % (39.0-53.0) Mean Corpuscular Volume 86 fL (79-100) Mean Corpuscular Hemoglobin 29 pg (25-35) Mean Corpuscular Hemoglobin Concent 33 g/dL (31-37) Red Cell Distribution Width 15.3 % (11.5-14.5) Platelet Count 141 x10^3/uL (140-400) Prothrombin Time 16.9 SEC (11.7-14.0) Prothromb Time International Ratio 1.4 (0.8-1.1) Heparin Anti-Xa Act, Unfractionated 0.72 IU/mL (0.30-0.70) Sodium Level 140 mmol/L (136-145) Potassium Level 4.6 mmol/L (3.5-5.1) Chloride Level 106 mmol/L (98-107) Carbon Dioxide Level 27 mmol/L (21-32) Anion Gap 7 (6-14) Blood Urea Nitrogen 21 mg/dL (8-26) Creatinine 0.7 mg/dL (0.7-1.3) Estimated GFR (Cockcroft-Gault) 109.1 BUN/Creatinine Ratio 30 (6-20) Glucose Level 161 mg/dL (70-99) Calcium Level 8.0 mg/dL (8.5-10.1) Total Bilirubin 0.5 mg/dL (0.2-1.0) Aspartate Amino Transf (AST/SGOT) 24 U/L (15-37) Alanine Aminotransferase (ALT/SGPT) 35 U/L (16-63) Alkaline Phosphatase 72 U/L (46-116) Total Protein 4.9 g/dL (6.4-8.2) Albumin 2.0 g/dL (3.4-5.0) Albumin/Globulin Ratio 0.7 (1.0-1.7) Laboratory Tests Test 04/16/19 15:40 04/16/19 22:35 04/17/19 04:50 Hemoglobin 12.4 g/dL (13.0-17.5) 11.4 g/dL (13.0-17.5) 11.1 g/dL (13.0-17.5) Hematocrit 37.9 % (39.0-53.0) 34.1 % (39.0-53.0) 33.3 % (39.0-53.0) Mean Corpuscular Hemoglobin Concent 33 g/dL (31-37) 33 g/dL (31-37) 33 g/dL (31-37) Heparin Anti-Xa Act, Unfractionated 0.64 IU/mL (0.30-0.70) 0.83 IU/mL (0.30-0.70) 0.72 IU/mL (0.30-0.70) White Blood Count 9.9 x10^3/uL (4.0-11.0) Red Blood Count 3.85 x10^6/uL (4.30-5.70) Mean Corpuscular Volume 86 fL (79-100) Mean Corpuscular Hemoglobin 29 pg (25-35) Red Cell Distribution Width 15.3 % (11.5-14.5) Platelet Count 141 x10^3/uL (140-400) Prothrombin Time 16.9 SEC (11.7-14.0) Prothromb Time International Ratio 1.4 (0.8-1.1) Sodium Level 140 mmol/L (136-145) Potassium Level 4.6 mmol/L (3.5-5.1) Chloride Level 106 mmol/L (98-107) Carbon Dioxide Level 27 mmol/L (21-32) Anion Gap 7 (6-14) Blood Urea Nitrogen 21 mg/dL (8-26) Creatinine 0.7 mg/dL (0.7-1.3) Estimated GFR (Cockcroft-Gault) 109.1 BUN/Creatinine Ratio 30 (6-20) Glucose Level 161 mg/dL (70-99) Calcium Level 8.0 mg/dL (8.5-10.1) Total Bilirubin 0.5 mg/dL (0.2-1.0) Aspartate Amino Transf (AST/SGOT) 24 U/L (15-37) Alanine Aminotransferase (ALT/SGPT) 35 U/L (16-63) Alkaline Phosphatase 72 U/L (46-116) Total Protein 4.9 g/dL (6.4-8.2) Albumin 2.0 g/dL (3.4-5.0) Albumin/Globulin Ratio 0.7 (1.0-1.7) Impression . IMPRESSION: 1. Acute hypoxemic respiratory failure secondary to acute pulmonary embolism. 2. Acute pulmonary emboli. 3. Bilateral lower extremity venous thrombi. 4. 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 5. Tobacco dependent, in remission. 6. Lower GI bleed. 7. Severe protein malnutrition present upon admission. Plan . OVERALL BETTER WILL CONTINUE THE SAME H/H NOTED NO MORE ACTIVE BLEEDING NANCY WINTER MD Apr 17, 2019 10:44
[2019-04-17] MEDS: PANTOPRAZOLE 40 MG TABLET.DR. PO SCH (11:41)
--- NOTE | 2019-04-17 14:09 | PDOC ---
CARDIOLOGY PROGRESS NOTE SUBJECTIVE: No acute events overnight. GI bleed scan positive. H/H stable. He reports breathing is stable. OBJECTIVE: Vital Signs/I&O: Vital Signs Date Time Temp Pulse Resp B/P (MAP) Pulse Ox O2 Delivery O2 Flow Rate FiO2 04/17/19 12:00 97.8 87 16 133/75 (94) 94 Nasal Cannula 2.0 97.8 I & O 04/16/19 04/16/19 04/17/19 15:00 23:00 07:00 Intake Total 300 ml 2041 ml Output Total 550 ml 730 ml 540 ml Balance -250 ml 1311 ml -540 ml Objective: a/o x 3. Tachypneic Normal heart tones No edema. Soft abd. CURRENT MEDICATIONS: hep gtt PPI DIAGNOSTIC TESTING: H/H stable Labs: Laboratory Tests 04/17/19 04:50 Laboratory Tests Test 04/16/19 15:40 04/16/19 22:35 04/17/19 04:50 04/17/19 12:50 Hemoglobin 12.4 g/dL (13.0-17.5) L 11.4 g/dL (13.0-17.5) L 11.1 g/dL (13.0-17.5) L Hematocrit 37.9 % (39.0-53.0) L 34.1 % (39.0-53.0) L 33.3 % (39.0-53.0) L Mean Corpuscular Hemoglobin Concent 33 g/dL (31-37) 33 g/dL (31-37) 33 g/dL (31-37) Heparin Anti-Xa Act, Unfractionated 0.64 IU/mL (0.30-0.70) 0.83 IU/mL (0.30-0.70) H 0.72 IU/mL (0.30-0.70) H 0.65 IU/mL (0.30-0.70) White Blood Count 9.9 x10^3/uL (4.0-11.0) Red Blood Count 3.85 x10^6/uL (4.30-5.70) L Mean Corpuscular Volume 86 fL (79-100) Mean Corpuscular Hemoglobin 29 pg (25-35) Red Cell Distribution Width 15.3 % (11.5-14.5) H Platelet Count 141 x10^3/uL (140-400) Prothrombin Time 16.9 SEC (11.7-14.0) H Prothromb Time International Ratio 1.4 (0.8-1.1) H Sodium Level 140 mmol/L (136-145) Potassium Level 4.6 mmol/L (3.5-5.1) Chloride Level 106 mmol/L (98-107) Carbon Dioxide Level 27 mmol/L (21-32) Anion Gap 7 (6-14) Blood Urea Nitrogen 21 mg/dL (8-26) Creatinine 0.7 mg/dL (0.7-1.3) Estimated GFR (Cockcroft-Gault) 109.1 BUN/Creatinine Ratio 30 (6-20) H Glucose Level 161 mg/dL (70-99) H Calcium Level 8.0 mg/dL (8.5-10.1) L Total Bilirubin 0.5 mg/dL (0.2-1.0) Aspartate Amino Transf (AST/SGOT) 24 U/L (15-37) Alkaline Phosphatase 72 U/L (46-116) Total Protein 4.9 g/dL (6.4-8.2) L Albumin 2.0 g/dL (3.4-5.0) L Albumin/Globulin Ratio 0.7 (1.0-1.7) L ASSESSMENT: 1. Massive pulmonary emboli 2. DVT 3. GI bleeding 4. RV strain PLAN: 1. Defer anticoagulation and filter placement to Dr. Clark Supportive care from CV standpoint. Will follow along peripherally. Outpt echo. Thanks SHEYLA SOTO MD Apr 17, 2019 14:09
[2019-04-17] MEDS: HEPARIN 25,000UTS/500ML PREMIX 500 ML IV PRN (14:56)
[2019-04-18] VITALS (15 sets, daily range): BP systolic 11–134; BP diastolic 55–76
[2019-04-18] MEDS: methylPREDNISolone SOD SUCC PF 40 MG/ML VIAL. IV SCH ×3 (05:43→20:02)
[2019-04-18] MEDS: HEPARIN 25,000UTS/500ML PREMIX 500 ML IV PRN ×2 (05:45→23:52)
[2019-04-18 07:53] LABS: HEMATOCRIT 29.9 % (39.0-53.0); HEMOGLOBIN 9.8 g/dL (13.0-17.5); RED BLOOD COUNT 3.43 x10^6/uL (4.30-5.70); RED CELL DISTRIBUTION WIDTH 15.4 % (11.5-14.5); WHITE BLOOD COUNT 7.6 x10^3/uL (4.0-11.0)
[2019-04-18 07:54] LABS: CALCIUM 8.1 mg/dL (8.5-10.1); CREATININE 0.7 mg/dL (0.7-1.3); GFR 109.1; POTASSIUM 4.8 mmol/L (3.5-5.1)
[2019-04-18] MEDS: PANTOPRAZOLE 40 MG TABLET.DR. PO SCH (08:10)
--- NOTE | 2019-04-18 08:26 | PN ---
DATE: 04/18/2019 SUBJECTIVE: The patient is resting, almost flat in bed, in no apparent distress. On questioning him, he denied any complaint, in particular denied any abdominal pain. Denied any chest pain, shortness of breath, orthopnea, or paroxysmal nocturnal dyspnea. Denied any cough, phlegm, or hemoptysis. The nursing staff did not voice any concern except that he has one bowel movement that continued to be bloody. Continues obviously on heparin and so far his H and H has remained stable and did not require any IVC filter. PHYSICAL EXAMINATION: GENERAL: When I examined him, he looked pale. No jaundice, cyanosis, or thyromegaly. No jugular venous distension. No limb edema. VITAL SIGNS: His heart rate was 70, blood pressure was 117/57, temperature was 98, respiratory rate was 10, and oxygen saturation was 93% on 2 liters of oxygen. HEAD, EYES, EARS, NOSE AND THROAT: Showed normocephalic, atraumatic. NECK: Supple. HEART: Showed normal first and second heart sounds. No gallop or murmur. CHEST: Clear to auscultation. No crepitation or rhonchi. ABDOMEN: Distended, soft, nontender. No guarding or rigidity. No organomegaly. All hernial orifice intact. Bowel sounds normal. NEUROLOGIC: He was awake, alert, responding appropriately. All cranial nerves are intact. He moves extremities without difficulty, although he is mostly bedbound. His intake over the last 24 hours was 2340, output was 1830. LABORATORY DATA: Today's labs are still pending at the time of this dictation. Yesterday, his hemoglobin was 11, hematocrit 33 with normal white cell count and platelets. His chemistry showed a BUN of 21, creatinine 0.7. ASSESSMENT: 1. Acute hypoxic respiratory failure secondary to massive pulmonary embolism. 2. Saddle embolus, treated with TPA and heparin drip. 3. Bilateral lower extremity deep vein thrombosis. 4. Chronic obstructive pulmonary disease. 5. Continued tobacco abuse. 6. Gastrointestinal bleeding. 7. Severe protein-calorie malnutrition. PLAN: Continue heparin drip. Continue to monitor his H and H and transfuse him as needed, obviously as long as his H and H has remained within acceptable range. Continue with heparin; however, might require IVC filter. ELBERT DELUCA MD DR: Uche JOB#: [id number] / [id number]
--- NOTE | 2019-04-18 09:07 | PDOC ---
PULMONARY PROGRESS NOTES Subjective Pt. is tolerating clear liquids nursing reports 3 small bloody stools, denies SOA or cough. Currently on 2 liters N/C Vitals Vital Signs Date Time Temp Pulse Resp B/P (MAP) Pulse Ox O2 Delivery O2 Flow Rate FiO2 04/18/19 07:00 96.2 89 26 125/60 (81) 94 Nasal Cannula 2.0 96.2 ROS: No Nausea, No Chest Pain, No Abdominal Pain General: Alert Lungs: Clear Cardiovascular: S1, S2 Abdomen: Soft, Non-tender Neuro Exam: Alert, Oriented Extremities: No Edema Skin: Warm Labs Laboratory Tests Test 04/16/19 15:40 04/16/19 22:35 04/17/19 04:50 04/17/19 12:50 Hemoglobin 12.4 g/dL (13.0-17.5) 11.4 g/dL (13.0-17.5) 11.1 g/dL (13.0-17.5) Hematocrit 37.9 % (39.0-53.0) 34.1 % (39.0-53.0) 33.3 % (39.0-53.0) Mean Corpuscular Hemoglobin Concent 33 g/dL (31-37) 33 g/dL (31-37) 33 g/dL (31-37) Heparin Anti-Xa Act, Unfractionated 0.64 IU/mL (0.30-0.70) 0.83 IU/mL (0.30-0.70) 0.72 IU/mL (0.30-0.70) 0.65 IU/mL (0.30-0.70) White Blood Count 9.9 x10^3/uL (4.0-11.0) Red Blood Count 3.85 x10^6/uL (4.30-5.70) Mean Corpuscular Volume 86 fL (79-100) Mean Corpuscular Hemoglobin 29 pg (25-35) Red Cell Distribution Width 15.3 % (11.5-14.5) Platelet Count 141 x10^3/uL (140-400) Prothrombin Time 16.9 SEC (11.7-14.0) Prothromb Time International Ratio 1.4 (0.8-1.1) Sodium Level 140 mmol/L (136-145) Potassium Level 4.6 mmol/L (3.5-5.1) Chloride Level 106 mmol/L (98-107) Carbon Dioxide Level 27 mmol/L (21-32) Anion Gap 7 (6-14) Blood Urea Nitrogen 21 mg/dL (8-26) Creatinine 0.7 mg/dL (0.7-1.3) Estimated GFR (Cockcroft-Gault) 109.1 BUN/Creatinine Ratio 30 (6-20) Glucose Level 161 mg/dL (70-99) Calcium Level 8.0 mg/dL (8.5-10.1) Total Bilirubin 0.5 mg/dL (0.2-1.0) Aspartate Amino Transf (AST/SGOT) 24 U/L (15-37) Alanine Aminotransferase (ALT/SGPT) 35 U/L (16-63) Alkaline Phosphatase 72 U/L (46-116) Total Protein 4.9 g/dL (6.4-8.2) Albumin 2.0 g/dL (3.4-5.0) Albumin/Globulin Ratio 0.7 (1.0-1.7) Test 04/17/19 19:10 04/18/19 03:10 Heparin Anti-Xa Act, Unfractionated 0.54 IU/mL (0.30-0.70) 0.74 IU/mL (0.30-0.70) White Blood Count 7.6 x10^3/uL (4.0-11.0) Red Blood Count 3.43 x10^6/uL (4.30-5.70) Hemoglobin 9.8 g/dL (13.0-17.5) Hematocrit 29.9 % (39.0-53.0) Mean Corpuscular Volume 87 fL (79-100) Mean Corpuscular Hemoglobin 29 pg (25-35) Mean Corpuscular Hemoglobin Concent 33 g/dL (31-37) Red Cell Distribution Width 15.4 % (11.5-14.5) Platelet Count 148 x10^3/uL (140-400) Sodium Level 140 mmol/L (136-145) Potassium Level 4.8 mmol/L (3.5-5.1) Chloride Level 109 mmol/L (98-107) Carbon Dioxide Level 25 mmol/L (21-32) Anion Gap 6 (6-14) Blood Urea Nitrogen 25 mg/dL (8-26) Creatinine 0.7 mg/dL (0.7-1.3) Estimated GFR (Cockcroft-Gault) 109.1 Glucose Level 165 mg/dL (70-99) Calcium Level 8.1 mg/dL (8.5-10.1) Laboratory Tests Test 04/17/19 12:50 04/17/19 19:10 04/18/19 03:10 Heparin Anti-Xa Act, Unfractionated 0.65 IU/mL (0.30-0.70) 0.54 IU/mL (0.30-0.70) 0.74 IU/mL (0.30-0.70) White Blood Count 7.6 x10^3/uL (4.0-11.0) Red Blood Count 3.43 x10^6/uL (4.30-5.70) Hemoglobin 9.8 g/dL (13.0-17.5) Hematocrit 29.9 % (39.0-53.0) Mean Corpuscular Volume 87 fL (79-100) Mean Corpuscular Hemoglobin 29 pg (25-35) Mean Corpuscular Hemoglobin Concent 33 g/dL (31-37) Red Cell Distribution Width 15.4 % (11.5-14.5) Platelet Count 148 x10^3/uL (140-400) Sodium Level 140 mmol/L (136-145) Potassium Level 4.8 mmol/L (3.5-5.1) Chloride Level 109 mmol/L (98-107) Carbon Dioxide Level 25 mmol/L (21-32) Anion Gap 6 (6-14) Blood Urea Nitrogen 25 mg/dL (8-26) Creatinine 0.7 mg/dL (0.7-1.3) Estimated GFR (Cockcroft-Gault) 109.1 Glucose Level 165 mg/dL (70-99) Calcium Level 8.1 mg/dL (8.5-10.1) Impression . 1. Acute hypoxemic respiratory failure secondary to acute pulmonary embolism. S/P TPA 2. Acute pulmonary emboli. 3. Bilateral lower extremity venous thrombi. 4. 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 5. Tobacco dependent, in remission. 6. Lower GI bleed. 7. Severe protein malnutrition present upon admission. Plan . 1. Clinically improved 2.Monitor HGB, stable at this time 3. Supplemental oxygen to keep sats above 92% 4. cont. heparin gtt, at this time complex transition to Po 2/2 cont. GI bleeding 5. bleed scan positive, and still GI bleeding recs per GI 6. cont. PPI 7. D/W NANCY CHOWDHURY MD Apr 18, 2019 09:07
--- NOTE | 2019-04-18 11:02 | PDOC ---
G I PROGRESS NOTE Reason for Follow-up GI bleed Subjective Bloody stools small overnight Physical Exam Lungs decreased BS CV S1 S2 ABD +BS, soft, nontender Review of Relevant I have reviewed the following items nicolas (where applicable) has been applied. Labs Laboratory Tests Test 04/16/19 15:40 04/16/19 22:35 04/17/19 04:50 04/17/19 12:50 Hemoglobin 12.4 g/dL (13.0-17.5) 11.4 g/dL (13.0-17.5) 11.1 g/dL (13.0-17.5) Hematocrit 37.9 % (39.0-53.0) 34.1 % (39.0-53.0) 33.3 % (39.0-53.0) Mean Corpuscular Hemoglobin Concent 33 g/dL (31-37) 33 g/dL (31-37) 33 g/dL (31-37) Heparin Anti-Xa Act, Unfractionated 0.64 IU/mL (0.30-0.70) 0.83 IU/mL (0.30-0.70) 0.72 IU/mL (0.30-0.70) 0.65 IU/mL (0.30-0.70) White Blood Count 9.9 x10^3/uL (4.0-11.0) Red Blood Count 3.85 x10^6/uL (4.30-5.70) Mean Corpuscular Volume 86 fL (79-100) Mean Corpuscular Hemoglobin 29 pg (25-35) Red Cell Distribution Width 15.3 % (11.5-14.5) Platelet Count 141 x10^3/uL (140-400) Prothrombin Time 16.9 SEC (11.7-14.0) Prothromb Time International Ratio 1.4 (0.8-1.1) Sodium Level 140 mmol/L (136-145) Potassium Level 4.6 mmol/L (3.5-5.1) Chloride Level 106 mmol/L (98-107) Carbon Dioxide Level 27 mmol/L (21-32) Anion Gap 7 (6-14) Blood Urea Nitrogen 21 mg/dL (8-26) Creatinine 0.7 mg/dL (0.7-1.3) Estimated GFR (Cockcroft-Gault) 109.1 BUN/Creatinine Ratio 30 (6-20) Glucose Level 161 mg/dL (70-99) Calcium Level 8.0 mg/dL (8.5-10.1) Total Bilirubin 0.5 mg/dL (0.2-1.0) Aspartate Amino Transf (AST/SGOT) 24 U/L (15-37) Alanine Aminotransferase (ALT/SGPT) 35 U/L (16-63) Alkaline Phosphatase 72 U/L (46-116) Total Protein 4.9 g/dL (6.4-8.2) Albumin 2.0 g/dL (3.4-5.0) Albumin/Globulin Ratio 0.7 (1.0-1.7) Test 04/17/19 19:10 04/18/19 03:10 Heparin Anti-Xa Act, Unfractionated 0.54 IU/mL (0.30-0.70) 0.74 IU/mL (0.30-0.70) White Blood Count 7.6 x10^3/uL (4.0-11.0) Red Blood Count 3.43 x10^6/uL (4.30-5.70) Hemoglobin 9.8 g/dL (13.0-17.5) Hematocrit 29.9 % (39.0-53.0) Mean Corpuscular Volume 87 fL (79-100) Mean Corpuscular Hemoglobin 29 pg (25-35) Mean Corpuscular Hemoglobin Concent 33 g/dL (31-37) Red Cell Distribution Width 15.4 % (11.5-14.5) Platelet Count 148 x10^3/uL (140-400) Sodium Level 140 mmol/L (136-145) Potassium Level 4.8 mmol/L (3.5-5.1) Chloride Level 109 mmol/L (98-107) Carbon Dioxide Level 25 mmol/L (21-32) Anion Gap 6 (6-14) Blood Urea Nitrogen 25 mg/dL (8-26) Creatinine 0.7 mg/dL (0.7-1.3) Estimated GFR (Cockcroft-Gault) 109.1 Glucose Level 165 mg/dL (70-99) Calcium Level 8.1 mg/dL (8.5-10.1) Laboratory Tests Test 04/17/19 12:50 04/17/19:10 04/18/19 03:10 Heparin Anti-Xa Act, Unfractionated 0.65 IU/mL (0.30-0.70) 0.54 IU/mL (0.30-0.70) 0.74 IU/mL (0.30-0.70) White Blood Count 7.6 x10^3/uL (4.0-11.0) Red Blood Count 3.43 x10^6/uL (4.30-5.70) Hemoglobin 9.8 g/dL (13.0-17.5) Hematocrit 29.9 % (39.0-53.0) Mean Corpuscular Volume 87 fL (79-100) Mean Corpuscular Hemoglobin 29 pg (25-35) Mean Corpuscular Hemoglobin Concent 33 g/dL (31-37) Red Cell Distribution Width 15.4 % (11.5-14.5) Platelet Count 148 x10^3/uL (140-400) Sodium Level 140 mmol/L (136-145) Potassium Level 4.8 mmol/L (3.5-5.1) Chloride Level 109 mmol/L (98-107) Carbon Dioxide Level 25 mmol/L (21-32) Anion Gap 6 (6-14) Blood Urea Nitrogen 25 mg/dL (8-26) Creatinine 0.7 mg/dL (0.7-1.3) Estimated GFR (Cockcroft-Gault) 109.1 Glucose Level 165 mg/dL (70-99) Calcium Level 8.1 mg/dL (8.5-10.1) Medications Current Medications Heparin Sodium/ Dextrose 500 ml @ 0 mls/hr CONT PRN IV PER PROTOCOL; Start 04/15/19 at 20:00; Stop 04/16/19 at 07:36; Status DC Heparin Sodium (Porcine) (Heparin Sodium) 2,950 unit PRN Q6HRS PRN IV FOR UFH LEVEL LESS THAN 0.2 Last administered on 04/16/19at 03:16; Start 04/15/19 at 20:00; Stop 04/16/19 at 07:36; Status DC Heparin Sodium (Porcine) (Heparin Sodium) 1,450 unit PRN Q6HRS PRN IV FOR UFH LEVEL 0.2 - 0.29; Start 04/15/19 at 20:00; Stop 04/16/19 at 07:36; Status DC Sodium Chloride 1,000 ml @ 75 mls/hr [id number] IV Last administered on 04/16/19at 12:53; Start 04/15/19 at 21:00; Stop 04/16/19 at 13:41; Status DC Methylprednisolone Sodium Succinate (SOLU-Medrol 40MG VIAL) 40 mg Q8HRS IV Last administered on 04/18/19at 05:43; Start 04/15/19 at 21:00 Alteplase, Recombinant 50 mg/ Sodium Chloride 500 ml @ 500 mls/hr 1X ONCE IV ; Start 04/15/19 at 22:15; Stop 04/15/19 at 23:14; Status UNV Alteplase, Recombinant 100 ml @ 50 mls/hr 1X ONCE IV Last administered on 04/15/19at 22:45; Start 04/16/19 at 00:00; Stop 04/16/19 at 01:59; Status DC Pantoprazole Sodium 80 mg/ Sodium Chloride 100 ml @ 10 mls/hr Q10H IV Last administered on 04/16/19at 08:30; Start 04/16/19 at 07:30; Stop 04/16/19 at 14:03; Status DC Lidocaine HCl (Buffered Lidocaine 1%) 3 ml STK-MED ONCE .ROUTE ; Start 04/16/19 at 08:38; Stop 04/16/19 at 08:38; Status DC Iohexol (Omnipaque 240 Mg/ml) 50 ml STK-MED ONCE .ROUTE ; Start 04/16/19 at 08:39; Stop 04/16/19 at 08:39; Status DC Heparin Sodium/ Dextrose 500 ml @ 37 mls/hr CONT PRN IV PER PROTOCOL Last administered on 04/18/19at 05:45; Start 04/16/19 at 09:30 Heparin Sodium (Porcine) (Heparin Sodium) 2,950 unit PRN Q6HRS PRN IV FOR UFH LEVEL LESS THAN 0.2; Start 04/16/19 at 09:30 Heparin Sodium (Porcine) (Heparin Sodium) 1,450 unit PRN Q6HRS PRN IV FOR UFH LEVEL 0.2 - 0.29; Start 04/16/19 at 09:30 Heparin Sodium (Porcine) (HEPARIN for NUC MED) 100 unit 1X ONCE IV ; Start 04/16/19 at 10:45; Stop 04/16/19 at 10:46; Status DC Pantoprazole Sodium (Protonix) 40 mg DAILYAC PO Last administered on 04/18/19at 08:10; Start 04/17/19 at 07:30 Vitals/I & O Vital Sign - Last 24 Hours 04/17/19 04/17/19 04/17/19 04/17/19 12:00 12:00 13:00 14:00 Temp 97.8 97.8 Pulse 87 88 87 Resp 16 16 15 B/P (MAP) 133/75 (94) 119/62 (81) 117/73 (88) Pulse Ox 94 94 95 O2 Delivery Nasal Cannula Nasal Cannula Nasal Cannula Nasal Cannula O2 Flow Rate 2.0 2.0 2.0 2.0 04/17/19 04/17/19 04/17/19 04/17/19 15:00 16:00 16:00 17:00 Temp 98.3 98.3 Pulse 86 86 90 Resp 14 16 27 B/P (MAP) 121/75 (90) 136/75 (95) 125/68 (87) Pulse Ox 95 94 94 O2 Delivery Nasal Cannula Nasal Cannula Nasal Cannula Nasal Cannula O2 Flow Rate 2.0 2.0 2.0 2.0 04/17/19 04/17/19 04/17/19 04/17/19 18:00 19:00 20:00 20:00 Temp 97.0 97.0 Pulse 82 84 63 Resp 15 22 18 B/P (MAP) 122/67 (85) 116/63 (80) 110/63 (79) Pulse Ox 95 96 94 O2 Delivery Nasal Cannula Nasal Cannula Nasal Cannula Nasal Cannula O2 Flow Rate 2.0 2.0 2.0 2.0 04/17/19 04/17/19 04/17/19 04/18/19 21:00 22:00 23:00 00:00 Temp 98.4 98.4 Pulse 84 76 76 64 Resp 13 13 16 16 B/P (MAP) 103/64 (77) 111/64 (80) 113/60 (77) 128/70 (89) Pulse Ox 91 93 94 94 O2 Delivery Nasal Cannula Nasal Cannula Nasal Cannula Nasal Cannula O2 Flow Rate 2.0 2.0 2.0 2.0 04/18/19 04/18/19 04/18/19 04/18/19 00:00 01:00 02:00 03:00 Pulse 86 69 64 Resp 18 18 18 B/P (MAP) 113/64 (80) 131/67 (88) 11/66 (48) Pulse Ox 93 94 95 O2 Delivery Nasal Cannula Nasal Cannula Nasal Cannula Nasal Cannula O2 Flow Rate 2.0 2.0 2.0 2.0 04/18/19 04/18/19 04/18/19 04/18/19 04:00 04:00 05:00 06:00 Pulse 80 83 70 Resp 18 22 10 B/P (MAP) 113/62 (79) 116/74 (88) 117/57 (77) Pulse Ox 94 96 93 O2 Delivery Nasal Cannula Nasal Cannula Nasal Cannula Nasal Cannula O2 Flow Rate 2.0 2.0 2.0 2.0 04/18/19 04/18/19 04/18/19 04/18/19 07:00 08:00 08:00 09:00 Temp 96.2 96.2 Pulse 89 90 83 Resp 26 19 13 B/P (MAP) 125/60 (81) 129/76 (93) 134/74 (94) Pulse Ox 94 93 93 O2 Delivery Nasal Cannula Nasal Cannula Nasal Cannula Nasal Cannula O2 Flow Rate 2.0 2.0 2.0 2.0 Intake and Output 04/17/19 04/17/19 04/18/19 15:00 23:00 07:00 Intake Total 360 ml 1343 ml 100 ml Output Total 660 ml 675 ml 535 ml Balance -300 ml 668 ml -435 ml Problem List Acute blood loss anemia- with DVT/PE, on heparin, monitor HG, transfusions as needed, endoscopy only if bleeding becomes excessive, CPM JOSE SULLIVAN MD Apr 18, 2019 11:02
--- NOTE | 2019-04-18 18:24 | NUR ---
Pt transferred to room 258 with all belongings.
[2019-04-19 03:00] VITALS: BP 111/55
[2019-04-19] MEDS: methylPREDNISolone SOD SUCC PF 40 MG/ML VIAL. IV SCH ×3 (06:11→22:35)
[2019-04-19 07:08] LABS: HEMATOCRIT 24.3 % (39.0-53.0); HEMOGLOBIN 8.2 g/dL (13.0-17.5)
[2019-04-19 07:41] VITALS: BP 130/58
[2019-04-19] MEDS: PANTOPRAZOLE 40 MG TABLET.DR. PO SCH (07:54)
--- NOTE | 2019-04-19 09:29 | PN ---
DATE: 04/19/2019 SUBJECTIVE: The patient is resting, slightly propped up in bed, in no apparent respiratory distress, awake, alert. The only complaint offered was he wants a cup of coffee, but other than that, he denied any chest pain or shortness of breath. His H and H have dropped dramatically, in fact, he lost 50% of his hemoglobin. As on admission to [facility], his hemoglobin was 16 and today, it is 8.2 so I do not know when he will need an IVC filter. PHYSICAL EXAMINATION: GENERAL: When I examined him this morning, he was actually looked pale, not jaundiced, cyanosis or thyromegaly. No jugular venous distention. No lower limb edema. VITAL SIGNS: His heart rate was 64, blood pressure was 130/58, temperature was 97.3, respiratory rate was 19 and oxygen saturation was 93% on room air. HEAD, EYES, EARS, NOSE AND THROAT: Showed normocephalic, atraumatic. NECK: Supple. CARDIAC: Normal first and second heart sounds. No gallop or murmur. CHEST: Shows central trachea, reduced chest expansion, reduced air entry, vesicular sounds. I could not appreciate any crepitation or rhonchi. ABDOMEN: Distended, soft, nontender. NEUROLOGIC: He is awake, alert, responding appropriately. All cranial nerves are intact. He moves extremities without difficulty. He has multiple bruises ____ foot and arms. His intake over the last 24 hours was 1800, output was 1850. LABORATORY DATA: His lab work this morning showed hemoglobin of 8.2, hematocrit 24. His chemistry showed a serum sodium 140, potassium 4.8, chloride 109, bicarbonate 25, anion gap of 6, BUN 25, creatinine 0.7, estimated GFR was 109, glucose 165 and calcium was 8.1. ASSESSMENT AND PLAN: 1. Acute hypoxic respiratory failure secondary to massive pulmonary embolism. 2. Saddle embolus, treated with tPA and heparin drip. 3. Bilateral lower extremity deep vein thrombosis. 4. Chronic obstructive pulmonary disease. 5. Acute blood loss anemia with hemoglobin and hematocrit that dropped down from 15 and 46 down to 8.2 and 24 due to gastrointestinal bleeding. 6. Continued tobacco abuse. 7. Severe protein-calorie malnutrition. I think the patient has lost almost 50% of his hemoglobin, hematocrit and I believe that he needs to have an inferior vena cava filter. I will discuss this with Dr. Clark as he probably will need transfusion soon. ELBERT DELUCA MD DR: MARKY/kathleen JOB#: [id number] / [id number]
--- NOTE | 2019-04-19 10:20 | PDOC ---
PULMONARY PROGRESS NOTES Subjective Pt. is tolerating clear liquids nursing reports 2 small bloody stools, denies SOA or cough. Currently on 2 liters N/C, reports feeling much better. Vitals Vital Signs Date Time Temp Pulse Resp B/P (MAP) Pulse Ox O2 Delivery O2 Flow Rate FiO2 04/19/19 08:00 Nasal Cannula 2.0 04/19/19 07:41 97.3 64 19 130/58 (82) 93 97.3 ROS: No Nausea, No Chest Pain, No Abdominal Pain, No Increase Cough General: Alert, Oriented X4 Lungs: Clear Cardiovascular: S1, S2 Abdomen: Soft, Non-tender Neuro Exam: Alert, Oriented Extremities: No Edema Skin: Warm, Dry Impression BLE U/S 04/16/19 Impression: Partial and occlusive deep vein thrombosis involving the bilateral superficial femoral, popliteal and posterior tibial veins. Labs Laboratory Tests Test 04/17/19 12:50 04/17/19 19:10 04/18/19 03:10 04/18/19 10:07 Heparin Anti-Xa Act, Unfractionated 0.65 IU/mL (0.30-0.70) 0.54 IU/mL (0.30-0.70) 0.74 IU/mL (0.30-0.70) 0.64 IU/mL (0.30-0.70) White Blood Count 7.6 x10^3/uL (4.0-11.0) Red Blood Count 3.43 x10^6/uL (4.30-5.70) Hemoglobin 9.8 g/dL (13.0-17.5) Hematocrit 29.9 % (39.0-53.0) Mean Corpuscular Volume 87 fL (79-100) Mean Corpuscular Hemoglobin 29 pg (25-35) Mean Corpuscular Hemoglobin Concent 33 g/dL (31-37) Red Cell Distribution Width 15.4 % (11.5-14.5) Platelet Count 148 x10^3/uL (140-400) Sodium Level 140 mmol/L (136-145) Potassium Level 4.8 mmol/L (3.5-5.1) Chloride Level 109 mmol/L (98-107) Carbon Dioxide Level 25 mmol/L (21-32) Anion Gap 6 (6-14) Blood Urea Nitrogen 25 mg/dL (8-26) Creatinine 0.7 mg/dL (0.7-1.3) Estimated GFR (Cockcroft-Gault) 109.1 Glucose Level 165 mg/dL (70-99) Calcium Level 8.1 mg/dL (8.5-10.1) Test 04/18/19 16:15 04/19/19 00:15 04/19/19 06:10 Heparin Anti-Xa Act, Unfractionated 0.79 IU/mL (0.30-0.70) 0.64 IU/mL (0.30-0.70) 0.75 IU/mL (0.30-0.70) Hemoglobin 8.2 g/dL (13.0-17.5) Hematocrit 24.3 % (39.0-53.0) Laboratory Tests Test 04/18/19 16:15 04/19/19 00:15 04/19/19 06:10 Heparin Anti-Xa Act, Unfractionated 0.79 IU/mL (0.30-0.70) 0.64 IU/mL (0.30-0.70) 0.75 IU/mL (0.30-0.70) Hemoglobin 8.2 g/dL (13.0-17.5) Hematocrit 24.3 % (39.0-53.0) Impression . 1. Acute hypoxemic respiratory failure secondary to acute pulmonary embolism. S/P TPA--- improved 2. Acute pulmonary emboli--- stable 3. Bilateral lower extremity venous thrombi---stable 4. 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 Tobacco dependent, in remission. 6. Lower GI bleed---- ongoing 7. Severe protein malnutrition present upon admission. Plan . 1. Clinically improved, remains on 2 liters N/C 2.Monitor HGB, 9.8 on 04/18/19, now 8.2 today, continue to monitor and transfuse if less than 7.0 3. Supplemental oxygen to keep sats above 92% 4. cont. heparin gtt, at this time complex transition to Po 2/2 cont. GI bleeding, will re-consult IR for IVC filter placement 5. bleed scan positive, and still GI bleeding recs per GI, no need for EGD at this time per GI 6. cont. PPI 7. D/W RN WILL D/W DR FERNANDEZ IN AM REPEAT CT CHEST NANCY WINTER MD Apr 19, 2019 10:20
[2019-04-19 10:30] VITALS: BP 118/58
--- NOTE | 2019-04-19 13:54 | PDOC ---
G I PROGRESS NOTE Reason for Follow-up GI bleeding Subjective Stools still bloody Physical Exam Lungs decreased BS CV S1 S2' Abd +BS, soft, nontender Review of Relevant I have reviewed the following items nicolas (where applicable) has been applied. Labs Laboratory Tests Test 04/17/19 19:10 04/18/19 03:10 04/18/19 10:07 04/18/19 16:15 Heparin Anti-Xa Act, Unfractionated 0.54 IU/mL (0.30-0.70) 0.74 IU/mL (0.30-0.70) 0.64 IU/mL (0.30-0.70) 0.79 IU/mL (0.30-0.70) White Blood Count 7.6 x10^3/uL (4.0-11.0) Red Blood Count 3.43 x10^6/uL (4.30-5.70) Hemoglobin 9.8 g/dL (13.0-17.5) Hematocrit 29.9 % (39.0-53.0) Mean Corpuscular Volume 87 fL (79-100) Mean Corpuscular Hemoglobin 29 pg (25-35) Mean Corpuscular Hemoglobin Concent 33 g/dL (31-37) Red Cell Distribution Width 15.4 % (11.5-14.5) Platelet Count 148 x10^3/uL (140-400) Sodium Level 140 mmol/L (136-145) Potassium Level 4.8 mmol/L (3.5-5.1) Chloride Level 109 mmol/L (98-107) Carbon Dioxide Level 25 mmol/L (21-32) Anion Gap 6 (6-14) Blood Urea Nitrogen 25 mg/dL (8-26) Creatinine 0.7 mg/dL (0.7-1.3) Estimated GFR (Cockcroft-Gault) 109.1 Glucose Level 165 mg/dL (70-99) Calcium Level 8.1 mg/dL (8.5-10.1) Test 04/19/19 00:15 04/19/19 06:10 Heparin Anti-Xa Act, Unfractionated 0.64 IU/mL (0.30-0.70) 0.75 IU/mL (0.30-0.70) Hemoglobin 8.2 g/dL (13.0-17.5) Hematocrit 24.3 % (39.0-53.0) Laboratory Tests Test 04/18/19 16:15 04/19/19 00:15 04/19/19 06:10 Heparin Anti-Xa Act, Unfractionated 0.79 IU/mL (0.30-0.70) 0.64 IU/mL (0.30-0.70) 0.75 IU/mL (0.30-0.70) Hemoglobin 8.2 g/dL (13.0-17.5) Hematocrit 24.3 % (39.0-53.0) Medications Current Medications Heparin Sodium/ Dextrose 500 ml @ 0 mls/hr CONT PRN IV PER PROTOCOL; Start 04/15/19 at 20:00; Stop 04/16/19 at 07:36; Status DC Heparin Sodium (Porcine) (Heparin Sodium) 2,950 unit PRN Q6HRS PRN IV FOR UFH LEVEL LESS THAN 0.2 Last administered on 04/16/19at 03:16; Start 04/15/19 at 20:00; Stop 04/16/19 at 07:36; Status DC Heparin Sodium (Porcine) (Heparin Sodium) 1,450 unit PRN Q6HRS PRN IV FOR UFH LEVEL 0.2 - 0.29; Start 04/15/19 at 20:00; Stop 04/16/19 at 07:36; Status DC Sodium Chloride 1,000 ml @ 75 mls/hr [id number] IV Last administered on 04/16/19at 12:53; Start 04/15/19 at 21:00; Stop 04/16/19 at 13:41; Status DC Methylprednisolone Sodium Succinate (SOLU-Medrol 40MG VIAL) 40 mg Q8HRS IV Last administered on 04/19/19at 06:11; Start 04/15/19 at 21:00 Alteplase, Recombinant 50 mg/ Sodium Chloride 500 ml @ 500 mls/hr 1X ONCE IV ; Start 04/15/19 at 22:15; Stop 04/15/19 at 23:14; Status UNV Alteplase, Recombinant 100 ml @ 50 mls/hr 1X ONCE IV Last administered on 04/15/19at 22:45; Start 04/16/19 at 00:00; Stop 04/16/19 at 01:59; Status DC Pantoprazole Sodium 80 mg/ Sodium Chloride 100 ml @ 10 mls/hr Q10H IV Last administered on 04/16/19at 08:30; Start 04/16/19 at 07:30; Stop 04/16/19 at 14:03; Status DC Lidocaine HCl (Buffered Lidocaine 1%) 3 ml STK-MED ONCE .ROUTE ; Start 04/16/19 at 08:38; Stop 04/16/19 at 08:38; Status DC Iohexol (Omnipaque 240 Mg/ml) 50 ml STK-MED ONCE .ROUTE ; Start 04/16/19 at 08:39; Stop 04/16/19 at 08:39; Status DC Heparin Sodium/ Dextrose 500 ml @ 37 mls/hr CONT PRN IV PER PROTOCOL Last administered on 04/18/19at 23:52; Start 04/16/19 at 09:30 Heparin Sodium (Porcine) (Heparin Sodium) 2,950 unit PRN Q6HRS PRN IV FOR UFH LEVEL LESS THAN 0.2; Start 04/16/19 at 09:30 Heparin Sodium (Porcine) (Heparin Sodium) 1,450 unit PRN Q6HRS PRN IV FOR UFH LEVEL 0.2 - 0.29; Start 04/16/19 at 09:30 Heparin Sodium (Porcine) (HEPARIN for NUC MED) 100 unit 1X ONCE IV ; Start 04/16/19 at 10:45; Stop 04/16/19 at 10:46; Status DC Pantoprazole Sodium (Protonix) 40 mg DAILYAC PO Last administered on 04/19/19at 07:54; Start 04/17/19 at 07:30 Vitals/I & O Vital Sign - Last 24 Hours 04/18/19 04/18/19 04/18/19 04/18/19 15:00 18:53 20:00 23:49 Temp 97.3 97.6 97.4 97.3 97.6 97.4 Pulse 60 83 65 Resp 12 16 19 B/P (MAP) 131/67 (88) 118/67 (84) 129/59 (82) Pulse Ox 94 93 93 O2 Delivery Nasal Cannula Nasal Cannula Nasal Cannula Nasal Cannula O2 Flow Rate 2.0 2.0 2.0 1.0 04/19/19 04/19/19 04/19/19 04/19/19 03:00 07:41 08:00 10:30 Temp 97.9 97.3 97.5 97.9 97.3 97.5 Pulse 57 64 76 Resp B/P (MAP) 111/55 (73) 130/58 (82) 118/58 (78) Pulse Ox 94 93 94 O2 Delivery Nasal Cannula Nasal Cannula Nasal Cannula Nasal Cannula O2 Flow Rate 1.0 1.0 2.0 1.0 Intake and Output 04/18/19 04/18/19 04/19/19 14:59 22:59 06:59 Intake Total 720 ml 100 ml Output Total 425 ml 100 ml 800 ml Balance 295 ml -100 ml -700 ml Problem List CHronic blood loss anemia- with DVT/PE, anticoagulation needed, possible IVC filter in am , Drop in Hg noted, CPM JOSE SULLIVAN MD Apr 19, 2019 13:54
[2019-04-19 14:27] VITALS: BP 116/63
[2019-04-19 15:19] LABS: HEMATOCRIT 24.3 % (39.0-53.0)
[2019-04-19] MEDS ORDERED: ACETAMINOPHEN 325 MG TABLET. PO PRN (16:15)
[2019-04-19] MEDS ORDERED: ONDANSETRON PF 4 MG/2 ML VIAL. IVP PRN (16:15)
[2019-04-19] MEDS ORDERED: MORPHINE SULFATE 4 MG/ML VIAL. IV PRN (16:15)
[2019-04-19] MEDS: HEPARIN 25,000UTS/500ML PREMIX 500 ML IV PRN (16:43)
[2019-04-19 19:55] VITALS: BP 104/62
[2019-04-19 22:31] VITALS: BP 115/59
[2019-04-20] VITALS (15 sets, daily range): BP systolic 96–132; BP diastolic 43–78
[2019-04-20 05:25] LABS: RED BLOOD COUNT 2.29 x10^6/uL (4.30-5.70); RED CELL DISTRIBUTION WIDTH 15.6 % (11.5-14.5); WHITE BLOOD COUNT 12.3 x10^3/uL (4.0-11.0)
[2019-04-20 05:28] LABS: HEMATOCRIT 19.9 % (39.0-53.0); HEMOGLOBIN 6.7 g/dL (13.0-17.5)
[2019-04-20 05:34] LABS: CALCIUM 7.8 mg/dL (8.5-10.1); CREATININE 0.9 mg/dL (0.7-1.3); GFR 81.6; POTASSIUM 4.6 mmol/L (3.5-5.1)
[2019-04-20] MEDS: methylPREDNISolone SOD SUCC PF 40 MG/ML VIAL. IV SCH ×3 (05:53→21:16)
[2019-04-20] MEDS ORDERED: LIDOCAINE WITH 8.4% SOD BICARB 3 ML DISP.SYRIN. ONE (08:55)
[2019-04-20] MEDS ORDERED: IOHEXOL 240 MG/ML 50ML VIAL. ONE (08:55)
[2019-04-20] MEDS ORDERED: fentaNYL PF VIAL 100 MCG/2 ML VIAL ONE (09:13)
[2019-04-20] MEDS ORDERED: MIDAZOLAM HCL/PF 2 MG/2 ML VIAL. ONE (09:13)
--- NOTE | 2019-04-20 09:24 | NUR ---
Patient left to vascular lab for IVC filter at this time right after blood was started. Blood was started at 80 ml/hr. Vascular lab to monitor patient during transfusion while he is with them.
[2019-04-20] MEDS ORDERED: IOHEXOL 240 MG/ML 50ML VIAL. IV ONE (10:00)
[2019-04-20] MEDS ORDERED: fentaNYL PF VIAL 100 MCG/2 ML VIAL IV ONE (10:00)
[2019-04-20] MEDS ORDERED: LIDOCAINE WITH 8.4% SOD BICARB 3 ML DISP.SYRIN. IJ ONE (10:00)
--- NOTE | 2019-04-20 10:01 | PDOC ---
PULMONARY PROGRESS NOTES Subjective Pt. is tolerating clear liquids nursing reports 2 small bloody stools, denies SOA or cough. Currently on 2 liters N/C, reports feeling much better. Vitals Vital Signs Date Time Temp Pulse Resp B/P (MAP) Pulse Ox O2 Delivery O2 Flow Rate FiO2 04/20/19 09:58 14 96 Nasal Cannula 2.0 04/20/19 09:45 96 131/72 04/20/19 09:30 96.4 96.4 ROS: No Nausea, No Chest Pain, No Abdominal Pain, No Increase Cough General: Alert, Oriented X4 Lungs: Clear Cardiovascular: S1, S2 Abdomen: Soft, Non-tender Neuro Exam: Alert, Oriented Extremities: No Edema Skin: Warm, Dry Impression BLE U/S 04/16/19 Impression: Partial and occlusive deep vein thrombosis involving the bilateral superficial femoral, popliteal and posterior tibial veins. Labs Laboratory Tests Test 04/18/19 10:07 04/18/19 16:15 04/19/19 00:15 04/19/19 06:10 Heparin Anti-Xa Act, Unfractionated 0.64 IU/mL (0.30-0.70) 0.79 IU/mL (0.30-0.70) 0.64 IU/mL (0.30-0.70) 0.75 IU/mL (0.30-0.70) Hemoglobin 8.2 g/dL (13.0-17.5) Hematocrit 24.3 % (39.0-53.0) Test 04/19/19 15:00 04/19/19 21:05 04/20/19 04:20 Hemoglobin 8.0 g/dL (13.0-17.5) 6.7 g/dL (13.0-17.5) Hematocrit 24.3 % (39.0-53.0) 19.9 % (39.0-53.0) Heparin Anti-Xa Act, Unfractionated 0.67 IU/mL (0.30-0.70) 0.64 IU/mL (0.30-0.70) 0.61 IU/mL (0.30-0.70) White Blood Count 12.3 x10^3/uL (4.0-11.0) Red Blood Count 2.29 x10^6/uL (4.30-5.70) Mean Corpuscular Volume 87 fL (79-100) Mean Corpuscular Hemoglobin 29 pg (25-35) Mean Corpuscular Hemoglobin Concent 34 g/dL (31-37) Red Cell Distribution Width 15.6 % (11.5-14.5) Platelet Count 161 x10^3/uL (140-400) Sodium Level 142 mmol/L (136-145) Potassium Level 4.6 mmol/L (3.5-5.1) Chloride Level 110 mmol/L (98-107) Carbon Dioxide Level 28 mmol/L (21-32) Anion Gap 4 (6-14) Blood Urea Nitrogen 37 mg/dL (8-26) Creatinine 0.9 mg/dL (0.7-1.3) Estimated GFR (Cockcroft-Gault) 81.6 Glucose Level 192 mg/dL (70-99) Calcium Level 7.8 mg/dL (8.5-10.1) Laboratory Tests Test 04/19/19 15:00 04/19/19 21:05 04/20/19 04:20 Hemoglobin 8.0 g/dL (13.0-17.5) 6.7 g/dL (13.0-17.5) Hematocrit 24.3 % (39.0-53.0) 19.9 % (39.0-53.0) Heparin Anti-Xa Act, Unfractionated 0.67 IU/mL (0.30-0.70) 0.64 IU/mL (0.30-0.70) 0.61 IU/mL (0.30-0.70) White Blood Count 12.3 x10^3/uL (4.0-11.0) Red Blood Count 2.29 x10^6/uL (4.30-5.70) Mean Corpuscular Volume 87 fL (79-100) Mean Corpuscular Hemoglobin 29 pg (25-35) Mean Corpuscular Hemoglobin Concent 34 g/dL (31-37) Red Cell Distribution Width 15.6 % (11.5-14.5) Platelet Count 161 x10^3/uL (140-400) Sodium Level 142 mmol/L (136-145) Potassium Level 4.6 mmol/L (3.5-5.1) Chloride Level 110 mmol/L (98-107) Carbon Dioxide Level 28 mmol/L (21-32) Anion Gap 4 (6-14) Blood Urea Nitrogen 37 mg/dL (8-26) Creatinine 0.9 mg/dL (0.7-1.3) Estimated GFR (Cockcroft-Gault) 81.6 Glucose Level 192 mg/dL (70-99) Calcium Level 7.8 mg/dL (8.5-10.1) Impression . 1. Acute hypoxemic respiratory failure secondary to acute pulmonary embolism. S/P TPA--- improved 2. Acute pulmonary emboli--- stable 3. Bilateral lower extremity venous thrombi---stable 4. 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 Tobacco dependent, in remission. 6. Lower GI bleed---- ongoing 7. Severe protein malnutrition present upon admission. Plan . 1. Clinically improved, remains on 2 liters N/C 2.Monitor HGB, 9.8 on 04/18/19, now 8.2 today, continue to monitor and transfuse if less than 7.0 3. Supplemental oxygen to keep sats above 92% 4. cont. heparin gtt, at this time complex transition to Po 2/2 cont. GI bleeding, will re-consult IR for IVC filter placement 5. bleed scan positive, and still GI bleeding recs per GI, no need for EGD at this time per GI 6. cont. PPI 7. D/W RN WILL D/W DR FERNANDEZ IN AM REPEAT CT CHEST NANCY WINTER MD Apr 20, 2019 10:01
[2019-04-20] MEDS: PANTOPRAZOLE 40 MG TABLET.DR. PO SCH (10:56)
--- NOTE | 2019-04-20 11:15 | PDOC ---
Subjective: Subjective: Back from IVC filter placement. No stools/bleeding today - thinks last had a "spot" of blood yesterday but "I don't look." Objective: Objective: BUN 37 today. Has regular diet ordered. Vital Signs: Vital Signs Date Time Temp Pulse Resp B/P (MAP) Pulse Ox O2 Delivery O2 Flow Rate FiO2 04/20/19 11:05 97.3 90 18 125/68 (87) 92 Nasal Cannula 2.0 97.3 Labs: Laboratory Tests Test 04/19/19 15:00 04/19/19 21:05 04/20/19 04:20 Hemoglobin 8.0 g/dL 6.7 g/dL Hematocrit 24.3 % 19.9 % Heparin Anti-Xa Act, Unfractionated 0.67 IU/mL 0.64 IU/mL 0.61 IU/mL White Blood Count 12.3 x10^3/uL Red Blood Count 2.29 x10^6/uL Mean Corpuscular Volume 87 fL Mean Corpuscular Hemoglobin 29 pg Mean Corpuscular Hemoglobin Concent 34 g/dL Red Cell Distribution Width 15.6 % Platelet Count 161 x10^3/uL Sodium Level 142 mmol/L Potassium Level 4.6 mmol/L Chloride Level 110 mmol/L Carbon Dioxide Level 28 mmol/L Anion Gap 4 Blood Urea Nitrogen 37 mg/dL Creatinine 0.9 mg/dL Estimated GFR (Cockcroft-Gault) 81.6 Glucose Level 192 mg/dL Calcium Level 7.8 mg/dL Cu PE: GEN: NAD - transfusing LUNGS: NC 2L HEART: RR ABD: hyperactive BS, soft, non-tender NEURO/PSYCH: A & O 3 A/P: PE/DVT - s/p IVC filter 04/20 Hematochezia after TPA, +bleeding scan right abdomen Anemia - Hgb to 6.7 today CRC screen - none COPD on IV steroids -- Transfusion in process. Continue PPI. LAI ANDRADE Apr 20, 2019 11:15
--- NOTE | 2019-04-20 12:17 | PN ---
DATE: 04/20/2019 SUBJECTIVE: The patient is resting, slightly propped up in bed, in no apparent distress, has had an inferior vena cava filter placed successfully. Unfortunately, he dropped his H and H down to 6.7 and 19.9. We stopped his heparin drip and he is now receiving 1 unit of packed RBCs. On questioning him, he feels tired, but denied any chest pain or shortness of breath. PHYSICAL EXAMINATION: GENERAL: When I examined him, he looked pale. No jaundice, cyanosis or thyromegaly. No jugular venous distention. No limb edema. VITAL SIGNS: Her heart rate was 90, blood pressure was 125/68, temperature was 97.3, respiratory rate was 18, and oxygen saturation was 92% on 2 liters of oxygen. HEAD, EYES, EARS, NOSE AND THROAT: Showed normocephalic, atraumatic. NECK: Supple. HEART: Showed normal first and second heart sounds. No gallop or murmur. CHEST: Clear to auscultation. No crepitation or rhonchi. ABDOMEN: Distended, soft, nontender. No guarding or rigidity. No organomegaly. All hernial orifice intact. Bowel sounds normal. NEUROLOGIC: He was awake, alert, responding appropriately. All cranial nerves intact. He moves extremities without difficulty, although he is mostly bedbound. LABORATORY DATA: His lab work this morning showed his white cell count was 12,300, hemoglobin 6.7, hematocrit 19.9, MCV 87 and platelet count of 161,000. His chemistry showed a serum sodium 142, potassium 4.6, chloride 110, bicarbonate 28, anion gap of 4, BUN 37, creatinine 0.9, estimated GFR was 81 mL per minute, his glucose 192, calcium was 7.8. ASSESSMENT: 1. Acute hypoxic respiratory failure secondary to massive pulmonary embolism. 2. Saddle embolus, treated with TPA and heparin drip. 3. Bilateral lower extremity deep vein thrombosis. 4. Chronic obstructive pulmonary disease. 5. Acute blood loss anemia with hemoglobin and hematocrit that dropped down from 15 and 46 down to 6.7 and 19.9 due to gastrointestinal bleeding for which he was discontinued heparin. He has now an inferior vena cava filter. 6. Continued tobacco abuse. 7. Severe protein-calorie malnutrition. PLAN: To continue with all other medication. We will obviously discontinue heparin, start the process of physical and occupational therapy and eventually the patient needs to be in a correction facility for rehab. ELBERT DELUCA MD DR: MARKY/kathleen JOB#: [id number] / [id number]
--- NOTE | 2019-04-20 15:57 | NUR ---
SS following up with discharge planning. No discharge needs noted at this time. SS will continue to follow for discharge planning.
--- NOTE | 2019-04-20 16:22 | RAD ---
04/20/2019 2:17 PM Procedures: 1. Inferior venacavogram 2. Placement of an optionally retrievable IVC filter Clinical Indication: Pulmonary embolism. GI bleed. Contraindication to anticoagulation. The procedure, risks, and complications were explained to the patient's family members and they understood and wished to proceed. Consent form signed. Ultrasound guided access: Ultrasound evaluation showed a patent right internal jugular vein. R The right neck was prepped and draped using maximal sterile technique and one percent Xylocaine was used for local anesthesia. All elements of maximum sterile barrier technique was utilized. Under ultrasound guidance, a singlewall puncture was made into the right internal jugular vein followed by placement of a five [place] catheter into the distal IVC. An ultrasound image of the right neck was saved and sent to PACS. IVC gram: Digital subtraction venogram was then performed through an the delivery sheath. IVC visualized common iliac veins are patent. Renal inflow was identified.. IVC FILTER PLACEMENT: Next, under fluoroscopic guidance, a option IVC filter was deployed in an infrarenal location. The filter is well seated. Sedation: [id number] conscious sedation was performed for 30 minutes. Sedation was carried out while the patient was continually monitored by a member of the Radiology nursing staff. Continual cardiopulmonary monitoring was carried out during the procedure. The patient tolerated the procedure well. The right neck catheter was removed, pressure placed, and hemostasis obtained. A sterile dressing was applied. Fluoroscopy time: 2.2 minutes Dose area product: 6.1 cheung centimeter squared Impression: Successful placement of an optionally retrievable infrarenal IVC filter
[2019-04-20 18:34] LABS: HEMATOCRIT 25.5 % (39.0-53.0); HEMOGLOBIN 8.2 g/dL (13.0-17.5)
[2019-04-21 03:00] VITALS: BP 111/42
[2019-04-21 04:29] LABS: HEMATOCRIT 21.6 % (39.0-53.0); HEMOGLOBIN 7.3 g/dL (13.0-17.5); RED BLOOD COUNT 2.43 x10^6/uL (4.30-5.70); RED CELL DISTRIBUTION WIDTH 15.6 % (11.5-14.5); WHITE BLOOD COUNT 14.1 x10^3/uL (4.0-11.0)
[2019-04-21 04:48] LABS: ALBUMIN 2.1 g/dL (3.4-5.0); ALBUMIN/GLOBULIN RATIO 0.8 (1.0-1.7); CREATININE 0.8 mg/dL (0.7-1.3); GFR 93.5; POTASSIUM 4.7 mmol/L (3.5-5.1); TOTAL BILIRUBIN 0.6 mg/dL (0.2-1.0); TOTAL PROTEIN 4.7 g/dL (6.4-8.2)
[2019-04-21] MEDS: methylPREDNISolone SOD SUCC PF 40 MG/ML VIAL. IV SCH ×3 (06:11→21:16)
[2019-04-21 07:00] VITALS: BP 140/56
[2019-04-21] MEDS: PANTOPRAZOLE 40 MG TABLET.DR. PO SCH (07:52)
--- NOTE | 2019-04-21 09:39 | PDOC ---
Subjective: Subjective: Hasn't stooled, doesn't know about bleeding; however, he's feeling "pretty darn good." Objective: Objective: No bleeding per nurse. Vital Signs: Vital Signs Date Time Temp Pulse Resp B/P (MAP) Pulse Ox O2 Delivery O2 Flow Rate FiO2 04/21/19 08:00 Nasal Cannula 2.0 04/21/19 07:00 96.8 81 20 140/56 (84) 90 96.8 Labs: Laboratory Tests Test 04/20/19 18:25 04/21/19 04:15 Hemoglobin 8.2 g/dL 7.3 g/dL Hematocrit 25.5 % 21.6 % White Blood Count 14.1 x10^3/uL Red Blood Count 2.43 x10^6/uL Mean Corpuscular Volume 89 fL Mean Corpuscular Hemoglobin 30 pg Mean Corpuscular Hemoglobin Concent 34 g/dL Red Cell Distribution Width 15.6 % Platelet Count 144 x10^3/uL Sodium Level 141 mmol/L Potassium Level 4.7 mmol/L Chloride Level 107 mmol/L Carbon Dioxide Level 30 mmol/L Anion Gap 4 Blood Urea Nitrogen 36 mg/dL Creatinine 0.8 mg/dL Estimated GFR (Cockcroft-Gault) 93.5 BUN/Creatinine Ratio 45 Glucose Level 172 mg/dL Calcium Level 8.0 mg/dL Total Bilirubin 0.6 mg/dL Aspartate Amino Transf (AST/SGOT) 23 U/L Alanine Aminotransferase (ALT/SGPT) 69 U/L Alkaline Phosphatase 77 U/L Total Protein 4.7 g/dL Albumin 2.1 g/dL Albumin/Globulin Ratio 0.8 PE: GEN: NAD LUNGS: NC 2L HEART: RRR ABD: NABS, S/ND/NT NEURO/PSYCH: A & O 3 A/P: PE/DVT s/p IVC filter 04/20 Hematochezia - resolved Anemia - improved w/ transfusion (1 unit pRBC), Hgb drifted some today -- Continue same per GI. LAI ANDRADE Apr 21, 2019 09:39
--- NOTE | 2019-04-21 10:18 | PN ---
DATE: 04/21/2019 SUBJECTIVE: The patient is resting, slightly propped up in bed, no apparent distress. On questioning him, he denied any complaint, and nursing staff did not voice any concern and stated he had generally uneventful night. No further episodes of hematochezia reported. He did receive 1 unit of packed RBCs and his H and H went up to 8.2 and 25.5 yesterday, this morning is down to 7.3 and 21.6. PHYSICAL EXAMINATION: GENERAL: When I examined him, he looked pale, but no jaundice, cyanosis or thyromegaly. No jugular venous distention. No limb edema. VITAL SIGNS: Her heart rate was 81, blood pressure was 140/56, temperature was 96.8, respiratory rate was 20, and oxygen saturation was 90% on 2 liters of oxygen. HEAD, EYES, EARS, NOSE AND THROAT: Showed normocephalic, atraumatic. NECK: Supple. HEART: Showed normal first and second heart sounds. No gallop or murmur. CHEST: Clear to auscultation. No crepitation or rhonchi. ABDOMEN: Distended, soft, nontender. No guarding or rigidity. No organomegaly. orifice intact. Bowel sounds normal. NEUROLOGIC: He was awake, alert, responding appropriately. All cranial nerves are intact. He moves extremities without difficulty. His intake over the last 24 hours was 500, output was 600. LABORATORY DATA: As of this morning, his white cell count was 14,000, hemoglobin 7.3, hematocrit 21.6, MCV 89 and platelet count of 144,000. His chemistry showed a serum sodium of 141, potassium 4.7, chloride 107, bicarbonate 30, anion gap of 4, BUN 36, creatinine 0.8, estimated GFR was 93 mL per minute, his glucose 172, calcium was 8. Total bilirubin, AST, ALT, alkaline phosphatase were normal. Total protein was 4.7, albumin was 2.1. ASSESSMENT: 1. Acute hypoxic respiratory failure secondary to massive pulmonary embolism. 2. Saddle embolus, treated with TPA and heparin drip. 3. Bilateral lower extremity deep vein thrombosis. 4. Chronic obstructive pulmonary disease. 5. Acute blood loss anemia with hemoglobin and hematocrit dropped down from 15 and 46 down to 6.7 and 19.9 for which he received 1 unit of packed RBCs. He has now an inferior vena cava filter and heparin drip was discontinued. 6. Continued tobacco abuse. 7. Severe protein-calorie malnutrition. PLAN: My plan is to consult Physical and Occupational Therapy. I will discontinue the indwelling Bhagat catheter. We will repeat his H and H this afternoon and again tomorrow morning. If he remains stable, he will be discharged to a half-way facility. ELBERT DELUCA MD DR: MARKY/kathleen JOB#: [id number] / [id number]
[2019-04-21 11:00] VITALS: BP 98/74
--- NOTE | 2019-04-21 13:00 | NUR ---
Patient has had one small, loose, dark bloody stool today.
--- NOTE | 2019-04-21 13:44 | PDOC ---
PULMONARY PROGRESS NOTES Subjective PT WITH NO INCREASE SOA NO HEMATEMESIS Vitals Vital Signs Date Time Temp Pulse Resp B/P (MAP) Pulse Ox O2 Delivery O2 Flow Rate FiO2 04/21/19 08:00 Nasal Cannula 2.0 04/21/19 07:00 96.8 81 20 140/56 (84) 90 96.8 ROS: No Nausea, No Chest Pain, No Abdominal Pain, No Increase Cough General: Alert Lungs: Clear Cardiovascular: S1, S2 Abdomen: Soft, Non-tender Neuro Exam: Alert, Oriented Extremities: No Edema Skin: Warm, Dry Impression BLE U/S 04/16/19 Impression: Partial and occlusive deep vein thrombosis involving the bilateral superficial femoral, popliteal and posterior tibial veins. Labs Laboratory Tests Test 04/19/19 15:00 04/19/19 21:05 04/20/19 04:20 04/20/19 18:25 Hemoglobin 8.0 g/dL (13.0-17.5) 6.7 g/dL (13.0-17.5) 8.2 g/dL (13.0-17.5) Hematocrit 24.3 % (39.0-53.0) 19.9 % (39.0-53.0) 25.5 % (39.0-53.0) Heparin Anti-Xa Act, Unfractionated 0.67 IU/mL (0.30-0.70) 0.64 IU/mL (0.30-0.70) 0.61 IU/mL (0.30-0.70) White Blood Count 12.3 x10^3/uL (4.0-11.0) Red Blood Count 2.29 x10^6/uL (4.30-5.70) Mean Corpuscular Volume 87 fL (79-100) Mean Corpuscular Hemoglobin 29 pg (25-35) Mean Corpuscular Hemoglobin Concent 34 g/dL (31-37) Red Cell Distribution Width 15.6 % (11.5-14.5) Platelet Count 161 x10^3/uL (140-400) Sodium Level 142 mmol/L (136-145) Potassium Level 4.6 mmol/L (3.5-5.1) Chloride Level 110 mmol/L (98-107) Carbon Dioxide Level 28 mmol/L (21-32) Anion Gap 4 (6-14) Blood Urea Nitrogen 37 mg/dL (8-26) Creatinine 0.9 mg/dL (0.7-1.3) Estimated GFR (Cockcroft-Gault) 81.6 Glucose Level 192 mg/dL (70-99) Calcium Level 7.8 mg/dL (8.5-10.1) Test 04/21/19 04:15 White Blood Count 14.1 x10^3/uL (4.0-11.0) Red Blood Count 2.43 x10^6/uL (4.30-5.70) Hemoglobin 7.3 g/dL (13.0-17.5) Hematocrit 21.6 % (39.0-53.0) Mean Corpuscular Volume 89 fL (79-100) Mean Corpuscular Hemoglobin 30 pg (25-35) Mean Corpuscular Hemoglobin Concent 34 g/dL (31-37) Red Cell Distribution Width 15.6 % (11.5-14.5) Platelet Count 144 x10^3/uL (140-400) Sodium Level 141 mmol/L (136-145) Potassium Level 4.7 mmol/L (3.5-5.1) Chloride Level 107 mmol/L (98-107) Carbon Dioxide Level 30 mmol/L (21-32) Anion Gap 4 (6-14) Blood Urea Nitrogen 36 mg/dL (8-26) Creatinine 0.8 mg/dL (0.7-1.3) Estimated GFR (Cockcroft-Gault) 93.5 BUN/Creatinine Ratio 45 (6-20) Glucose Level 172 mg/dL (70-99) Calcium Level 8.0 mg/dL (8.5-10.1) Total Bilirubin 0.6 mg/dL (0.2-1.0) Aspartate Amino Transf (AST/SGOT) 23 U/L (15-37) Alanine Aminotransferase (ALT/SGPT) 69 U/L (16-63) Alkaline Phosphatase 77 U/L (46-116) Total Protein 4.7 g/dL (6.4-8.2) Albumin 2.1 g/dL (3.4-5.0) Albumin/Globulin Ratio 0.8 (1.0-1.7) Laboratory Tests Test 04/20/19 18:25 04/21/19 04:15 Hemoglobin 8.2 g/dL (13.0-17.5) 7.3 g/dL (13.0-17.5) Hematocrit 25.5 % (39.0-53.0) 21.6 % (39.0-53.0) White Blood Count 14.1 x10^3/uL (4.0-11.0) Red Blood Count 2.43 x10^6/uL (4.30-5.70) Mean Corpuscular Volume 89 fL (79-100) Mean Corpuscular Hemoglobin 30 pg (25-35) Mean Corpuscular Hemoglobin Concent 34 g/dL (31-37) Red Cell Distribution Width 15.6 % (11.5-14.5) Platelet Count 144 x10^3/uL (140-400) Sodium Level 141 mmol/L (136-145) Potassium Level 4.7 mmol/L (3.5-5.1) Chloride Level 107 mmol/L (98-107) Carbon Dioxide Level 30 mmol/L (21-32) Anion Gap 4 (6-14) Blood Urea Nitrogen 36 mg/dL (8-26) Creatinine 0.8 mg/dL (0.7-1.3) Estimated GFR (Cockcroft-Gault) 93.5 BUN/Creatinine Ratio 45 (6-20) Glucose Level 172 mg/dL (70-99) Calcium Level 8.0 mg/dL (8.5-10.1) Total Bilirubin 0.6 mg/dL (0.2-1.0) Aspartate Amino Transf (AST/SGOT) 23 U/L (15-37) Alanine Aminotransferase (ALT/SGPT) 69 U/L (16-63) Alkaline Phosphatase 77 U/L (46-116) Total Protein 4.7 g/dL (6.4-8.2) Albumin 2.1 g/dL (3.4-5.0) Albumin/Globulin Ratio 0.8 (1.0-1.7) Impression . 1. Acute hypoxemic respiratory failure secondary to acute pulmonary embolism. S/P TPA--- improved 2. Acute pulmonary emboli--- stable 3. Bilateral lower extremity venous thrombi---stable 4. 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 Tobacco dependent, in remission. 6. Lower GI bleed---- 7. Severe protein malnutrition present upon admission. Plan . MONITOR H/H OFF ANTICOAGULATION S/P IVC FILTER D/W NANCY CARO MD Apr 21, 2019 13:44
[2019-04-21 15:00] VITALS: BP 90/63
[2019-04-21 18:50] LABS: HEMATOCRIT 24.5 % (39.0-53.0); HEMOGLOBIN 7.8 g/dL (13.0-17.5)
[2019-04-21 19:00] VITALS: BP 99/49
[2019-04-21 23:00] VITALS: BP 120/62
[2019-04-22 03:00] VITALS: BP 103/71
[2019-04-22 04:34] LABS: HEMATOCRIT 23.4 % (39.0-53.0); HEMOGLOBIN 7.7 g/dL (13.0-17.5); RED BLOOD COUNT 2.56 x10^6/uL (4.30-5.70); RED CELL DISTRIBUTION WIDTH 16.3 % (11.5-14.5); WHITE BLOOD COUNT 16.3 x10^3/uL (4.0-11.0)
[2019-04-22 04:46] LABS: CALCIUM 8.1 mg/dL (8.5-10.1); CREATININE 0.9 mg/dL (0.7-1.3); GFR 81.6; POTASSIUM 4.6 mmol/L (3.5-5.1)
[2019-04-22] MEDS: methylPREDNISolone SOD SUCC PF 40 MG/ML VIAL. IV SCH ×3 (05:26→21:27)
[2019-04-22 07:00] VITALS: BP 123/60
[2019-04-22] MEDS: PANTOPRAZOLE 40 MG TABLET.DR. PO SCH (08:56)
--- NOTE | 2019-04-22 09:48 | PDOC ---
PULMONARY PROGRESS NOTES Subjective PT WITH NO INCREASE SOA NO HEMATEMESIS Vitals Vital Signs Date Time Temp Pulse Resp B/P (MAP) Pulse Ox O2 Delivery O2 Flow Rate FiO2 04/22/19 07:00 97.3 77 123/60 (81) 98 Nasal Cannula 2.0 97.3 04/22/19 03:00 16 ROS: No Nausea, No Chest Pain, No Abdominal Pain, No Increase Cough General: Alert Lungs: Clear Cardiovascular: S1, S2 Abdomen: Soft, Non-tender Neuro Exam: Alert, Oriented Extremities: No Edema Skin: Warm, Dry Impression BLE U/S 04/16/19 Impression: Partial and occlusive deep vein thrombosis involving the bilateral superficial femoral, popliteal and posterior tibial veins. Labs Laboratory Tests Test 04/20/19 18:25 04/21/19 04:15 04/21/19 18:45 04/22/19 03:55 Hemoglobin 8.2 g/dL (13.0-17.5) 7.3 g/dL (13.0-17.5) 7.8 g/dL (13.0-17.5) 7.7 g/dL (13.0-17.5) Hematocrit 25.5 % (39.0-53.0) 21.6 % (39.0-53.0) 24.5 % (39.0-53.0) 23.4 % (39.0-53.0) White Blood Count 14.1 x10^3/uL (4.0-11.0) 16.3 x10^3/uL (4.0-11.0) Red Blood Count 2.43 x10^6/uL (4.30-5.70) 2.56 x10^6/uL (4.30-5.70) Mean Corpuscular Volume 89 fL (79-100) 92 fL (79-100) Mean Corpuscular Hemoglobin 30 pg (25-35) 30 pg (25-35) Mean Corpuscular Hemoglobin Concent 34 g/dL (31-37) 33 g/dL (31-37) Red Cell Distribution Width 15.6 % (11.5-14.5) 16.3 % (11.5-14.5) Platelet Count 144 x10^3/uL (140-400) 154 x10^3/uL (140-400) Sodium Level 141 mmol/L (136-145) 140 mmol/L (136-145) Potassium Level 4.7 mmol/L (3.5-5.1) 4.6 mmol/L (3.5-5.1) Chloride Level 107 mmol/L (98-107) 106 mmol/L (98-107) Carbon Dioxide Level 30 mmol/L (21-32) 24 mmol/L (21-32) Anion Gap 4 (6-14) 10 (6-14) Blood Urea Nitrogen 36 mg/dL (8-26) 29 mg/dL (8-26) Creatinine 0.8 mg/dL (0.7-1.3) 0.9 mg/dL (0.7-1.3) Estimated GFR (Cockcroft-Gault) 93.5 81.6 BUN/Creatinine Ratio 45 (6-20) Glucose Level 172 mg/dL (70-99) 189 mg/dL (70-99) Calcium Level 8.0 mg/dL (8.5-10.1) 8.1 mg/dL (8.5-10.1) Total Bilirubin 0.6 mg/dL (0.2-1.0) Aspartate Amino Transf (AST/SGOT) 23 U/L (15-37) Alanine Aminotransferase (ALT/SGPT) 69 U/L (16-63) Alkaline Phosphatase 77 U/L (46-116) Total Protein 4.7 g/dL (6.4-8.2) Albumin 2.1 g/dL (3.4-5.0) Albumin/Globulin Ratio 0.8 (1.0-1.7) Laboratory Tests Test 04/21/19 18:45 04/22/19 03:55 Hemoglobin 7.8 g/dL (13.0-17.5) 7.7 g/dL (13.0-17.5) Hematocrit 24.5 % (39.0-53.0) 23.4 % (39.0-53.0) White Blood Count 16.3 x10^3/uL (4.0-11.0) Red Blood Count 2.56 x10^6/uL (4.30-5.70) Mean Corpuscular Volume 92 fL (79-100) Mean Corpuscular Hemoglobin 30 pg (25-35) Mean Corpuscular Hemoglobin Concent 33 g/dL (31-37) Red Cell Distribution Width 16.3 % (11.5-14.5) Platelet Count 154 x10^3/uL (140-400) Sodium Level 140 mmol/L (136-145) Potassium Level 4.6 mmol/L (3.5-5.1) Chloride Level 106 mmol/L (98-107) Carbon Dioxide Level 24 mmol/L (21-32) Anion Gap 10 (6-14) Blood Urea Nitrogen 29 mg/dL (8-26) Creatinine 0.9 mg/dL (0.7-1.3) Estimated GFR (Cockcroft-Gault) 81.6 Glucose Level 189 mg/dL (70-99) Calcium Level 8.1 mg/dL (8.5-10.1) Impression . 1. Acute hypoxemic respiratory failure secondary to acute pulmonary embolism. S/P TPA--- improved 2. Acute pulmonary emboli--- stable 3. Bilateral lower extremity venous thrombi---stable 4. 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 Tobacco dependent, in remission. 6. Lower GI bleed---- 7. Severe protein malnutrition present upon admission. Plan . MONITOR H/H OFF ANTICOAGULATION S/P IVC FILTER D/W NANCY CARO MD Apr 22, 2019 09:48
--- NOTE | 2019-04-22 10:52 | NUR ---
SS following up with discharge planning. PT/OT recommended senior living unit at discharge. SS met with pt to discuss discharge planning and senior living unit. Pt reported that he is from [place] and has Medicare Part A only. Insurance and options for senior living unit discussed. Pt requested that referral be phoned and faxed to [facility], [phone]; fax [phone]. SS phoned and faxed referral. SS will await acceptance decision and will proceed accordingly with discharge planning.
[2019-04-22 11:33] VITALS: BP 120/64
--- NOTE | 2019-04-22 11:34 | PDOC ---
Subjective: Subjective: Doing okay, hanging in there, still not enthusiastic about having a colonoscopy later on. Nursing notes dark stool - more formed. Objective: Vital Signs: Vital Signs Date Time Temp Pulse Resp B/P (MAP) Pulse Ox O2 Delivery O2 Flow Rate FiO2 04/22/19 08:00 Nasal Cannula 2.0 04/22/19 07:00 97.3 77 123/60 (81) 98 97.3 04/22/19 03:00 16 Labs: Laboratory Tests Test 04/21/19 18:45 04/22/19 03:55 Hemoglobin 7.8 g/dL 7.7 g/dL Hematocrit 24.5 % 23.4 % White Blood Count 16.3 x10^3/uL Red Blood Count 2.56 x10^6/uL Mean Corpuscular Volume 92 fL Mean Corpuscular Hemoglobin 30 pg Mean Corpuscular Hemoglobin Concent 33 g/dL Red Cell Distribution Width 16.3 % Platelet Count 154 x10^3/uL Sodium Level 140 mmol/L Potassium Level 4.6 mmol/L Chloride Level 106 mmol/L Carbon Dioxide Level 24 mmol/L Anion Gap 10 Blood Urea Nitrogen 29 mg/dL Creatinine 0.9 mg/dL Estimated GFR (Cockcroft-Gault) 81.6 Glucose Level 189 mg/dL Calcium Level 8.1 mg/dL PE: GEN: NAD, up in chair LUNGS: NC HEART: RRR ABD: NABS, S/ND/NT NEURO/PSYCH: A & O 3 A/P: PE/DVT s/p IVC filter 04/20 Leukocytosis and COPD on IV steroids Hematochezia - resolving, stools are now dark Anemia - stable -- Continue support, add iron. Have recommended outpt colonoscopy. LAI ANDRADE Apr 22, 2019 11:34
[2019-04-22] MEDS ORDERED: IRON SUCROSE COMPLEX 200 MG in IV NORMAL SALINE 100ML 100 ML IV ONE (13:00)
--- NOTE | 2019-04-22 13:19 | PN ---
DATE: 04/22/2019 SUBJECTIVE: The patient is resting, slightly propped up in bed, in no apparent respiratory distress. On questioning him, he stated that he is feeling very bloated and feels that his abdomen is full since he ate his breakfast, he could not touch his lunch, also felt extremely short of breath walking very short distance, had a bowel movement that was bloody according to him. PHYSICAL EXAMINATION: GENERAL: When I examined him this afternoon, he was pale, but no jaundice, cyanosis or thyromegaly. No jugular venous distention. No limb edema. VITAL SIGNS: His heart rate was 90, blood pressure was 120/64, temperature was 97.4, respiratory rate was 16, and oxygen saturation was 96% on 2 liters of oxygen. HEAD, EYES, EARS, NOSE AND THROAT: Showed normocephalic, atraumatic. NECK: Supple. HEART: Showed normal first and second heart sounds with no gallop, rub or murmur. CHEST: Clear to auscultation. No crepitation or rhonchi. ABDOMEN: Distended, soft, nontender. No guarding or rigidity. No organomegaly. All hernial orifice intact. Bowel sounds normal. NEUROLOGIC: He is awake, alert, responding appropriately. All cranial nerves are intact. He moves extremities without difficulty. His intake over the last 24 hours was 1100, output was 1150. LABORATORY DATA: His lab work as of this morning showed a white cell count of 16,300, hemoglobin 7.7, hematocrit 23, MCV 92, and platelet count of 154,000. His chemistry showed a serum sodium 140, potassium 4.6, chloride 106, bicarbonate 24, anion gap of 10, BUN 29, creatinine was 0.9, estimated GFR was 81 mL per minute, his glucose 189, calcium was 8.1. ASSESSMENT: 1. Acute hypoxic respiratory failure secondary to massive pulmonary embolism. 2. Saddle embolus, t-PA and heparin drip. 3. Bilateral lower extremity deep vein thrombosis. 4. Chronic obstructive pulmonary disease. 5. Acute blood loss anemia with hemoglobin and hematocrit that dropped down from 15 and 46 down to 6.7 and 19.9 for which he received 1 unit of packed RBCs, has now an inferior vena cava filter and heparin drip was discontinued. 6. Continued tobacco abuse. 7. Severe protein-calorie malnutrition. 8. Generalized weakness. PLAN: My plan is to start him on Venofer to replenish his iron stores and as he continued to have dark stool, I will keep him one more day and hopefully discharge him tomorrow to a halfway facility. ELBERT DELUCA MD DR: MARKY/kathleen JOB#: [id number] / [id number]
[2019-04-22 15:32] VITALS: BP 123/56
[2019-04-22] MEDS: FERROUS SULFATE 325 MG TABLET. PO SCH (17:25)
[2019-04-22 19:31] VITALS: BP 117/54
[2019-04-22 23:36] VITALS: BP 126/63
[2019-04-23 02:01] VITALS: BP 117/57
[2019-04-23] MEDS: methylPREDNISolone SOD SUCC PF 40 MG/ML VIAL. IV SCH ×2 (06:03→14:00)
[2019-04-23 06:59] LABS: HEMATOCRIT 23.7 % (39.0-53.0); HEMOGLOBIN 7.7 g/dL (13.0-17.5); RED BLOOD COUNT 2.54 x10^6/uL (4.30-5.70); WHITE BLOOD COUNT 11.7 x10^3/uL (4.0-11.0)
[2019-04-23 07:00] VITALS: BP 126/66
[2019-04-23 07:11] LABS: CALCIUM 8.1 mg/dL (8.5-10.1); CREATININE 0.8 mg/dL (0.7-1.3); GFR 93.5; POTASSIUM 4.1 mmol/L (3.5-5.1)
[2019-04-23] MEDS: FERROUS SULFATE 325 MG TABLET. PO SCH ×2 (08:44→16:35)
[2019-04-23] MEDS: PANTOPRAZOLE 40 MG TABLET.DR. PO SCH (08:44)
--- NOTE | 2019-04-23 09:18 | PDOC ---
PULMONARY PROGRESS NOTES Subjective PT WITH NO INCREASE SOA NO HEMATEMESIS Vitals Vital Signs Date Time Temp Pulse Resp B/P (MAP) Pulse Ox O2 Delivery O2 Flow Rate FiO2 04/23/19 07:00 97.5 70 16 126/66 (86) 95 Nasal Cannula 2.0 97.5 ROS: No Nausea, No Chest Pain, No Abdominal Pain, No Increase Cough General: Alert Lungs: Clear Cardiovascular: S1, S2 Abdomen: Soft, Non-tender Neuro Exam: Alert, Oriented Extremities: No Edema Skin: Warm, Dry Impression BLE U/S 04/16/19 Impression: Partial and occlusive deep vein thrombosis involving the bilateral superficial femoral, popliteal and posterior tibial veins. Labs Laboratory Tests Test 04/21/19 18:45 04/22/19 03:55 04/23/19 06:53 Hemoglobin 7.8 g/dL (13.0-17.5) 7.7 g/dL (13.0-17.5) 7.7 g/dL (13.0-17.5) Hematocrit 24.5 % (39.0-53.0) 23.4 % (39.0-53.0) 23.7 % (39.0-53.0) White Blood Count 16.3 x10^3/uL (4.0-11.0) 11.7 x10^3/uL (4.0-11.0) Red Blood Count 2.56 x10^6/uL (4.30-5.70) 2.54 x10^6/uL (4.30-5.70) Mean Corpuscular Volume 92 fL (79-100) 93 fL (79-100) Mean Corpuscular Hemoglobin 30 pg (25-35) 30 pg (25-35) Mean Corpuscular Hemoglobin Concent 33 g/dL (31-37) 33 g/dL (31-37) Red Cell Distribution Width 16.3 % (11.5-14.5) 17.0 % (11.5-14.5) Platelet Count 154 x10^3/uL (140-400) 127 x10^3/uL (140-400) Sodium Level 140 mmol/L (136-145) 137 mmol/L (136-145) Potassium Level 4.6 mmol/L (3.5-5.1) 4.1 mmol/L (3.5-5.1) Chloride Level 106 mmol/L (98-107) 105 mmol/L (98-107) Carbon Dioxide Level 24 mmol/L (21-32) 23 mmol/L (21-32) Anion Gap 10 (6-14) 9 (6-14) Blood Urea Nitrogen 29 mg/dL (8-26) 23 mg/dL (8-26) Creatinine 0.9 mg/dL (0.7-1.3) 0.8 mg/dL (0.7-1.3) Estimated GFR (Cockcroft-Gault) 81.6 93.5 Glucose Level 189 mg/dL (70-99) 141 mg/dL (70-99) Calcium Level 8.1 mg/dL (8.5-10.1) 8.1 mg/dL (8.5-10.1) Laboratory Tests Test 04/23/19 06:53 White Blood Count 11.7 x10^3/uL (4.0-11.0) Red Blood Count 2.54 x10^6/uL (4.30-5.70) Hemoglobin 7.7 g/dL (13.0-17.5) Hematocrit 23.7 % (39.0-53.0) Mean Corpuscular Volume 93 fL (79-100) Mean Corpuscular Hemoglobin 30 pg (25-35) Mean Corpuscular Hemoglobin Concent 33 g/dL (31-37) Red Cell Distribution Width 17.0 % (11.5-14.5) Platelet Count 127 x10^3/uL (140-400) Sodium Level 137 mmol/L (136-145) Potassium Level 4.1 mmol/L (3.5-5.1) Chloride Level 105 mmol/L (98-107) Carbon Dioxide Level 23 mmol/L (21-32) Anion Gap 9 (6-14) Blood Urea Nitrogen 23 mg/dL (8-26) Creatinine 0.8 mg/dL (0.7-1.3) Estimated GFR (Cockcroft-Gault) 93.5 Glucose Level 141 mg/dL (70-99) Calcium Level 8.1 mg/dL (8.5-10.1) Impression . 1. Acute hypoxemic respiratory failure secondary to acute pulmonary embolism. S/P TPA--- improved 2. Acute pulmonary emboli--- stable 3. Bilateral lower extremity venous thrombi---stable 4. 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 Tobacco dependent, in remission. 6. Lower GI bleed---- 7. Severe protein malnutrition present upon admission. Plan . MONITOR H/H OFF ANTICOAGULATION S/P IVC FILTER D/W NANCY CARO MD Apr 23, 2019 09:18
[2019-04-23 11:00] VITALS: BP 115/56
[2019-04-23] MEDS ORDERED: IRON SUCROSE COMPLEX 500 MG in IV NORMAL SALINE 250ML 250 ML IV ONE (11:30)
--- NOTE | 2019-04-23 12:03 | NUR ---
SS following up with discharge planning. Pt accepted at [facility], [phone]; fax [phone]. Physician notified. SS will await discharge orders and will proceed accordingly with discharge planning.
--- NOTE | 2019-04-23 12:51 | PDOC ---
Subjective: Subjective: Says he's been doing some leg lifts. Eating okay. Didn't look at stools but someone said it wasn't as dark. Objective: Objective: D/w Dr. Escobar - going to [facility] swing bed today. Vital Signs: Vital Signs Date Time Temp Pulse Resp B/P (MAP) Pulse Ox O2 Delivery O2 Flow Rate FiO2 04/23/19 11:00 97.5 92 16 115/56 (75) 95 Nasal Cannula 2.0 97.5 Labs: Laboratory Tests Test 04/23/19 06:53 White Blood Count 11.7 x10^3/uL Red Blood Count 2.54 x10^6/uL Hemoglobin 7.7 g/dL Hematocrit 23.7 % Mean Corpuscular Volume 93 fL Mean Corpuscular Hemoglobin 30 pg Mean Corpuscular Hemoglobin Concent 33 g/dL Red Cell Distribution Width 17.0 % Platelet Count 127 x10^3/uL Sodium Level 137 mmol/L Potassium Level 4.1 mmol/L Chloride Level 105 mmol/L Carbon Dioxide Level 23 mmol/L Anion Gap 9 Blood Urea Nitrogen 23 mg/dL Creatinine 0.8 mg/dL Estimated GFR (Cockcroft-Gault) 93.5 Glucose Level 141 mg/dL Calcium Level 8.1 mg/dL PE: GEN: NAD, up in chair LUNGS: NC 2L HEART: RRR ABD: S/ND/NT NEURO/PSYCH: A & O 3 A/P: PE/DVT s/p IVC filter 04/20 Hematochezia - resolved Anemia - stable (Hgb 7.7) -- DC plans as above. Continue iron. Outpt colonoscopy. LAI ANDRADE Apr 23, 2019 12:51
--- NOTE | 2019-04-23 14:53 | NUR ---
SS following up with discharge planning. Discharge orders received for [facility]. SS discussed with Breanna Matthews. Clinical phoned and faxed to [facility], [phone]; fax [phone]. Pt will discharge today and go to [facility] between 1700 and 1730 via [facility] transportation. Pt and pt's RN notified. Pt requested that no other family be called.
[2019-04-23 15:46] VITALS: BP 123/60
--- NOTE | 2019-04-23 17:19 | DS ---
DATE OF DISCHARGE: 04/23/2019 HOSPITAL COURSE: The patient is a 78-year-old male patient who was originally admitted to [facility] with acute respiratory failure. He also has cough, which is mostly dry. Denied any chest pain, but did complain of swelling of both lower extremities, and while in the hospital, he developed sudden severe shortness of breath with hypertension, hypoxemia and marked tachycardia. He initially was in atrial fibrillation with rapid ventricular response; however, he was given digoxin as well as multiple boluses of IV fluid and eventually we did a CT angio of the chest, which showed that the patient has massive and saddle pulmonary embolus, and therefore, the patient was transferred to [facility] after starting the heparin drip. By the time he arrived there, he was treated with TPA. Unfortunately, that was complicated by GI bleed. In fact, the patient has lost almost two-thirds of his blood and his hemoglobin has dropped from 16 and 45 down to 6.7 and 19. He did receive 1 unit of packed RBCs and had an inferior vena cava filter and the heparin drip was stopped. He was seen in consultation by the tumbling machine operator, musculoskeletal physician, as well as the parts remover; however, the patient declined colonoscopy, and as he remained stable hemodynamically with stable H and H, a decision was made to transfer him to swing bed to continue the process of rehabilitation as he continued to be extremely short of breath, markedly weak and debilitated. When I saw him today, he looked well and was clearly in no apparent respiratory distress. He was pale, but no jaundice, cyanosis or thyromegaly. No jugular venous distention. No limb edema. PHYSICAL EXAMINATION: VITAL SIGNS: Heart rate was 92, blood pressure was 115/56, temperature was 97.5, respiratory rate was 16, and oxygen saturation was 95% on 2 liters of oxygen. HEAD, EYES, EARS, NOSE AND THROAT: Showed normocephalic, atraumatic. NECK: Supple. HEART: Showed normal first and second heart sounds with no gallop or murmur. CHEST: Clear to auscultation. No crepitation or rhonchi. ABDOMEN: Distended, soft, nontender. NEUROLOGIC: He was awake, alert, responding appropriately. All cranial nerves are intact. He moves extremities without difficulty. He ambulates with a walker. His intake and output were incompletely recorded. LABORATORY DATA: As of this morning, his white cell count was ____, hemoglobin 7.7, hematocrit 23.7, MCV 93, and platelet count of 127,000. His chemistry showed a serum sodium 137, potassium 4.2, chloride 105, bicarbonate 23, anion gap of 9, BUN 23, creatinine 0.8. Estimated GFR was 94 mL per minute. Her glucose was 151, calcium was 8.1. DISCHARGE MEDICATIONS: He was discharged to continue on ferrous sulfate 325 mg twice a day with meals, ondansetron 4 mg p.o. every 4 hours as needed, Tylenol 650 mg every 6 hours as needed, Protonix 40 mg p.o. daily and prednisone 50 mg daily. FINAL DISCHARGE DIAGNOSES: 1. Acute hypoxic respiratory failure secondary to massive pulmonary embolism. 2. Saddle embolus status post TPA and heparin drip treatment. 3. Bilateral lower extremity deep venous thrombosis. 4. Chronic obstructive pulmonary disease. 5. Acute blood loss anemia with hemoglobin and hematocrit that dropped down from 15 and 46 down to 6.7 and 19.9, for which he received 1 unit of packed RBCs. The patient has now an inferior vena cava filter and his heparin drip was discontinued. 6. Continued tobacco abuse. 7. Severe protein-calorie malnutrition, severe generalized weakness and debility. ELBERT DELUCA MD DR: MARKY/kathleen JOB#: [id number] / [id number]
--- NOTE | 2019-04-23 17:47 | NUR ---
Discharge Note: KAYLENE YOUNGER [address] Discharge instructions and discharge home medications reviewed with Patient and a copy given. All questions have been answered and understanding verbalized. The following instructions and handouts were given: [facility] lines and drains: dicontinued right AC IV and the left AC remained intact per conversation with RN at [place]. Patient discharged to [facility] and transported by transportation service via [facility]
== END 2019-04-23 17:50 | DRG 166 ==
LOC: 1 WEST ICU 19:29 → EDBD 19:29 → 1 WEST ICU 19:33 → 2 SOUTH 04-18 18:27
PROVIDERS: ADMIT Internal Medicine; ATTEND Internal Medicine
PROC: 3E03317 Introduction of Other Thrombolytic into Peripheral Vein, Percutaneous Approach (ICD-10-PCS; 2019-04-15)
PROC: 06H03DZ Insertion of Intraluminal Device into Inferior Vena Cava, Percutaneous Approach (ICD-10-PCS; principal; 2019-04-20)
PROC: 30233N1 Transfusion of Nonautologous Red Blood Cells into Peripheral Vein, Percutaneous Approach (ICD-10-PCS; 2019-04-20)
PROC: B5191ZA Fluoroscopy of Inferior Vena Cava using Low Osmolar Contrast, Guidance (ICD-10-PCS; 2019-04-20)
DX: I26.92 Saddle embolus of pulmonary artery without acute cor pulmonale (principal); J96.21 Acute and chronic respiratory failure with hypoxia; I50.33 Acute on chronic diastolic (congestive) heart failure; E43 Unspecified severe protein-calorie malnutrition; D65 Disseminated intravascular coagulation [defibrination syndrome]; I82.403 Acute embolism and thrombosis of unspecified deep veins of lower extremity, bilateral; J44.1 Chronic obstructive pulmonary disease with (acute) exacerbation; K92.2 Gastrointestinal hemorrhage, unspecified; N17.9 Acute kidney failure, unspecified; D62 Acute posthemorrhagic anemia; I27.20 Pulmonary hypertension, unspecified; I07.1 Rheumatic tricuspid insufficiency; I25.10 Atherosclerotic heart disease of native coronary artery without angina pectoris; I11.0 Hypertensive heart disease with heart failure; E78.5 Hyperlipidemia, unspecified; D72.829 Elevated white blood cell count, unspecified; I48.91 Unspecified atrial fibrillation; Z68.28 Body mass index [BMI] 28.0-28.9, adult; Z87.891 Personal history of nicotine dependence; Z99.81 Dependence on supplemental oxygen; Z74.01 Bed confinement status; Z82.3 Family history of stroke; Z82.49 Family history of ischemic heart disease and other diseases of the circulatory system
CPT/HCPCS: 36415; 37191; 76937; 78278; 80048; 80053; 85014; 85018; 85027; 85049; 85379; 85384; 85520; 85610; 85730; 86850; 86900; 86901; 86920; 93970; 96374; A9560; C1769; C1892; C9113; J1644; J1756; J2405; J2920; J2997; J3010; J7030; P9016; Q9966; 97116; 97530; 97535; G0378